=== PATIENT | male | born 1975 | race Caucasian/White ===

== ENCOUNTER 2020-06-08 17:58 | Outpatient (REF) | payer OTHER, SELFPAY | END 2020-06-08 17:59 | disposition home or self-care (01) | LOC: HO.LNP 17:58 | PROVIDERS: Visit Provider Hospitalist | DX: Z20.828 Contact with and (suspected) exposure to other viral communicable diseases (principal) | CPT/HCPCS: 87635 ==

== ENCOUNTER 2020-06-25 14:56 | Outpatient (REF) | payer OTHER, SELFPAY | END 2020-06-25 14:57 | disposition home or self-care (01) | LOC: HO.LAB 14:56 | PROVIDERS: Visit Provider Nurse Practitioner Family | DX: J02.8 Acute pharyngitis due to other specified organisms (principal); B97.89 Other viral agents as the cause of diseases classified elsewhere | CPT/HCPCS: 87071; 87880; U0003 ==

== ENCOUNTER 2020-07-16 11:25 | Outpatient (REF) | payer OTHER, SELFPAY | END 2020-07-16 11:26 | disposition home or self-care (01) | LOC: HO.HMGCLDS 11:25 | PROVIDERS: Visit Provider Internal Medicine | DX: Z20.828 Contact with and (suspected) exposure to other viral communicable diseases (principal) | CPT/HCPCS: C9803; U0003 ==

== ENCOUNTER 2020-11-19 08:19 | Outpatient (REF) | payer OTHER, SELFPAY ==
[2020-11-19 10:03] LABS: MANUAL DIFF FLAG NO
[2020-11-19 10:13] LABS: Basophils Percent Auto 0.4 % (0-2); Eosinophils Absolute Auto 0.2 X10*3/uL (0.0-0.4); Eosinophils Percent Auto 2.5 % (0-4); Hemoglobin 14.4 g/dl (14.0-18.0); Imm Gran Abs Auto 0.02 X10*3/uL (0.00-0.03); Imm Gran Pct Auto 0.2 % (0.0-0.4); Mean Corpuscular Hemoglobin 31.4 pg (27.0-33.0); Mean Corpuscular Volume 98.3 fL (80-98); Mean Platelet Volume 11.1 fL (9.4-12.4); Monocytes Absolute Auto 0.6 X10*3/uL (0.1-1.2); Monocytes Percent Auto 7.4 % (2-11); Neutrophils Absolute Auto 5.6 X10*3/uL (2.0-8.3); Neutrophils Percent Auto 65.5 % (45-73); Platelet Count 252 X10*3/uL (160-400); Red Blood Count 4.58 X10*6/uL (4.60-5.80); Red Cell Distribution Width 11.4 % (11.0-16.0); White Blood Count 8.5 X10*3/uL (4.8-10.8)
[2020-11-19 10:42] LABS: Alanine Aminotransferase 9 U/L (0-40); Albumin Level 3.9 g/dL (3.5-5.0); Alkaline Phosphatase 88 U/L (39-117); Anion Gap 13 (12-20); Aspartate Amino Transferase 12 U/L (5-37); Bilirubin Total 0.5 mg/dL (0.0-1.0); Blood Urea Nitrogen 13 mg/dL (9-16); Calcium 8.7 mg/dL (8.4-10.2); Carbon Dioxide 24 mmol/L (22-29); Chloride 108 mmol/L (96-108); Estimated Glomerular Filt Rate > 60; Glucose Fasting 101 mg/dL (60-99); Potassium 4.2 mmol/L (3.3-5.1); Rheumatoid Factor < 15.0 IU/mL (<15.0); Sodium 141 mmol/L (135-145); Total Protein 6.5 g/dL (6.5-8.0)
[2020-11-20 22:21] LABS: Anti Nuclear Antibody Pattern Nuclear, Centromere; Anti Nuclear Antibody Screen POSITIVE (NEGATIVE)
== END 2020-11-19 08:20 | disposition home or self-care (01) ==
LOC: HO.10HDL 08:19
PROVIDERS: Visit Provider Nurse Practitioner Family
DX: M32.9 Systemic lupus erythematosus, unspecified (principal); M25.50 Pain in unspecified joint
CPT/HCPCS: 36415; 80053; 85025; 86038; 86039; 86431

== ENCOUNTER 2020-12-27 10:24 | Outpatient (REF) | payer OTHER, SELFPAY ==
--- NOTE | ~2020-12-27 | XR_ITS ---
EXAMINATION: BILATERAL HAND X-RAY CLINICAL INFORMATION: Joint pain COMPARISON: None TECHNIQUE: 3 views each hand FINDINGS: Bone alignment is normal. No fracture or dislocation is seen. Joint spaces are normal. Soft tissues are normal. XR/XR hand LT min 3V IMPRESSION: Unremarkable exam.
--- NOTE | ~2020-12-27 | XR_ITS ---
EXAMINATION: BILATERAL HAND X-RAY CLINICAL INFORMATION: Joint pain COMPARISON: None TECHNIQUE: 3 views each hand FINDINGS: Bone alignment is normal. No fracture or dislocation is seen. Joint spaces are normal. Soft tissues are normal. XR/XR hand RT min 3V IMPRESSION: Unremarkable exam.
--- NOTE | ~2020-12-27 | XR_ITS ---
EXAMINATION: XR SHOULDER, RIGHT CLINICAL INFORMATION: Pain COMPARISON: None TECHNIQUE: AP external rotation, Grashey, scapular Y, and axillary views of the right shoulder. FINDINGS: Bone alignment is normal. No fracture or dislocation is seen. The glenohumeral joint is normal. There is a small osteophyte and well-corticated ossification adjacent to the superior acromioclavicular joint. Soft tissues are otherwise unremarkable. XR/XR shoulder RT min 2V IMPRESSION: Mild degenerative changes at the acromioclavicular joint.
[2020-12-27 12:29] LABS: MANUAL DIFF FLAG NO
[2020-12-27 12:35] LABS: Basophils Percent Auto 0.3 % (0-2); Eosinophils Absolute Auto 0.2 X10*3/uL (0.0-0.4); Hematocrit 47.3 % (42-52); Hemoglobin 14.8 g/dl (14.0-18.0); Imm Gran Abs Auto 0.03 X10*3/uL (0.00-0.03); Imm Gran Pct Auto 0.3 % (0.0-0.4); Lymphocytes Absolute Auto 1.7 X10*3/uL (1.2-4.9); Lymphocytes Percent Auto 16.2 % (20-40); Mean Corpuscular HGB Conc 31.3 g/dl (31.0-36.0); Mean Corpuscular Hemoglobin 30.3 pg (27.0-33.0); Mean Corpuscular Volume 96.9 fL (80-98); Mean Platelet Volume 10.9 fL (9.4-12.4); Monocytes Absolute Auto 0.5 X10*3/uL (0.1-1.2); Monocytes Percent Auto 5.1 % (2-11); Neutrophils Percent Auto 76.1 % (45-73); Platelet Count 278 X10*3/uL (160-400); Red Blood Count 4.88 X10*6/uL (4.60-5.80); Red Cell Distribution Width 11.2 % (11.0-16.0); White Blood Count 10.4 X10*3/uL (4.8-10.8)
[2020-12-27 12:47] LABS: Glucose Urine UA NEG (NEG); Leukocyte Esterase Urine NEG (NEG); Nitrite Urine NEG (NEG); PH 5.5 (5.0-8.0); Specific Gravity - Urine >= 1.030 (1.005-1.025); Urine Blood NEG (NEG); Urine Ketones NEG (NEG); Urine Protein NEG (NEG-TRACE)
[2020-12-27 12:48] LABS: Appearance Urine HAZY; Color Urine YELLOW
[2020-12-27 12:53] LABS: Alanine Aminotransferase 10 U/L (0-40); Albumin Level 4.1 g/dL (3.5-5.0); Alkaline Phosphatase 112 U/L (39-117); Anion Gap 13 (12-20); Aspartate Amino Transferase 13 U/L (5-37); Bilirubin Total 0.6 mg/dL (0.0-1.0); Blood Urea Nitrogen 14 mg/dL (9-16); C Reactive Protein 0.73 mg/dL (< or = 0.50); Calcium 9.5 mg/dL (8.4-10.2); Carbon Dioxide 28 mmol/L (22-29); Chloride 104 mmol/L (96-108); Estimated Glomerular Filt Rate > 60; Glucose Random 153 mg/dL (60-115); Potassium 4.3 mmol/L (3.3-5.1); Rheumatoid Factor < 15.0 IU/mL (<15.0); Sodium 141 mmol/L (135-145)
[2020-12-27 13:19] LABS: RBC Urine 0 /HPF (0); Squamous Epithelial Cell Urine TRACE /LPF; WBC Urine 0 /HPF (0-4)
[2020-12-27 13:52] LABS: Erythrocyte Sedimentation Rate 7 MM/HR (0-15)
[2020-12-28 03:55] LABS: Syphilis Screen Nonreactive (Nonreactive)
[2020-12-28 04:28] LABS: HBS Num1 92.82 mIU/mL (0-7.99); HBsAGNum1 0.17 S/CO (0.00-0.99); Hepatitis B Surface Antigen Negative (Negative); ~Hepatitis B Surface Antibody REACTIVE (Nonreactive)
[2020-12-28 04:36] LABS: Hepatitis A Antibody IgM 0.26 Index (0-0.79); ~HepC Num1 14.99 S/CO (0.00-0.79); ~Hepatitis A Antibody IgM Nonreactive (Nonreactive); ~Hepatitis C Antibody Reactive (Nonreactive)
[2020-12-28 05:11] LABS: HBc Num1 7.68 S/CO (0.00-0.79)
[2020-12-28 05:12] LABS: HBc Num2 7.68 S/CO; HBc Num3 7.81 S/CO; Hepatitis B Core Antibody Reactive (Nonreactive)
[2020-12-28 08:13] LABS: Thyroglobulin Antibodies <1 IU/mL (< or = 1); Thyroid Peroxidase Antibodies <1 IU/mL (<9)
[2020-12-28 11:26] LABS: Complement C3 135 mg/dL (82-185)
[2020-12-28 12:16] LABS: Anti DNA DS Antibody <1 IU/mL; Anti-Centromere B Antibodies >8.0 POS AI (<1.0 NEG); Antibody to SS-A Antigen <1.0 NEG AI (<1.0 NEG); Antibody to SS-B Antigen <1.0 NEG AI (<1.0 NEG); SM/Ribonucleoprotein Ab <1.0 NEG AI (<1.0 NEG); Scleroderma 70 Antibody <1.0 NEG AI (<1.0 NEG); Smith Protein <1.0 NEG AI (<1.0 NEG)
[2020-12-31 14:57] LABS: PTT (LAC) Screen 31 sec (< OR = 40)
[2020-12-31 22:56] LABS: Cyclic Citrullinated Peptide <16 UNITS
[2021-01-01 14:57] LABS: Beta-2 Microglobulin, Serum 1.75 mg/L (< OR = 2.51)
[2021-01-01 22:37] LABS: Cardiolipin IgG Ab <14 GPL; Cardiolipin IgM Ab <12 MPL
== END 2020-12-27 10:25 | disposition home or self-care (01) ==
LOC: HO.LAB 10:24
PROVIDERS: PCP Internal Medicine; Visit Provider Student in an Organized Health Care Education/Training Program
DX: M25.50 Pain in unspecified joint (principal); R76.8 Other specified abnormal immunological findings in serum
CPT/HCPCS: 36415; 73030; 73130; 80053; 81001; 82232; 85025; 85597; 85613; 85652; 85730; 86038; 86140; 86147; 86160; 86200; 86225; 86235; 86376; 86431; 86704; 86706; 86709; 86780; 86800; 86803; 87340; 99202

== ENCOUNTER 2021-01-01 17:17 | Outpatient (REF) | payer OTHER, SELFPAY ==
[2021-01-03 15:21] LABS: HCV Log PCR <1.18 NOT DETECTED Log IU/mL (NOT DETECTED); HepC Viral Load <15 NOT DETECTED IU/mL (NOT DETECTED)
== END 2021-01-01 17:18 | disposition home or self-care (01) ==
LOC: HO.LAB 17:17
PROVIDERS: PCP Internal Medicine; Visit Provider Student in an Organized Health Care Education/Training Program
DX: R76.8 Other specified abnormal immunological findings in serum (principal)
CPT/HCPCS: 36415; 87522

== ENCOUNTER → 2021-01-11 10:07 | Outpatient (BNVA) | payer OTHER, SELFPAY | PROVIDERS: Visit Provider Student in an Organized Health Care Education/Training Program | DX: R76.8 Other specified abnormal immunological findings in serum (principal) | CPT/HCPCS: 99212 ==

== ENCOUNTER 2021-02-05 16:50 | Outpatient (REF) | payer OTHER, SELFPAY ==
--- NOTE | ~2021-02-05 | MR_ITS ---
EXAMINATION: MR HAND WITHOUT CONTRAST, RIGHT CLINICAL INFORMATION: Other specified soft tissue disorders. Patient reports right hand swelling and right wrist pain with symptoms for 3 years, and no recent injury. COMPARISON: XR right hand 12/27/2020. TECHNIQUE: MRI of the right hand was obtained using routine sequences on a high-field scanner. FINDINGS: MUSCLES/TENDONS: Intact. LIGAMENTS: Accounting for the large [id number], the triangular fibrocartilage and scapholunate and lunotriquetral ligaments appear intact. ARTICULAR CARTILAGE/BONE: There are no erosions. There are no other apparent degenerative arthritic changes. There are is no bone marrow edema. JOINT FLUID/BURSA/SOFT TISSUES: Within normal limits. MR/MR hand RT wo con IMPRESSION: Unremarkable MRI of the right hand.
== END 2021-02-05 16:51 | disposition home or self-care (01) ==
LOC: HO.MRI 16:50
PROVIDERS: Visit Provider Student in an Organized Health Care Education/Training Program
DX: M79.89 Other specified soft tissue disorders (principal)
CPT/HCPCS: 73218

== ENCOUNTER 2021-02-19 13:35 | Outpatient (REF) | payer OTHER, SELFPAY ==
--- NOTE | 2021-02-19 14:47 | PFT_ITS ---
Forced vital capacity, FEV1, XUI16-85, and MVV are all normal. Post bronchodilator therapy, there is no change. Total lung capacity normal. Residual volume slightly decreased. Diffusion capacity normal. CONCLUSION: Normal pulmonary function test. No evidence of obstructive or restrictive pulmonary disorder. Gayatri Jefferson MD MSB/MODL / [id number]
== END 2021-02-19 13:36 | disposition home or self-care (01) ==
LOC: HO.RESP 13:35
PROVIDERS: PCP Internal Medicine; Visit Provider Student in an Organized Health Care Education/Training Program
DX: R76.8 Other specified abnormal immunological findings in serum (principal)
CPT/HCPCS: 94060; 94727; 94729

== ENCOUNTER 2021-05-14 17:45 | Outpatient (REF) | payer OTHER, SELFPAY ==
[2021-05-14 18:23] LABS: Amphetamine Screen Urine Not Detected (Not Detect); Barbiturates, Urine Not Detected (Not Detect); Benzodiazepines Screen Urine Not Detected (Not Detect); Cannabinoid Screen Urine Not Detected (Not Detect); Cocaine Screen Urine POSITIVE (Not Detect); Fentanyl, urine POSITIVE (Not Detect); Opiate Screen Urine Not Detected (Not Detect); Phencyclidine Screen Urine Not Detected (Not Detect)
== END 2021-05-14 17:46 | disposition home or self-care (01) ==
LOC: HO.LNP 17:45
PROVIDERS: Visit Provider Internal Medicine
DX: R40.0 Somnolence (principal)
CPT/HCPCS: 80307; 80346; 80364; 80365; 80373

== ENCOUNTER 2022-02-26 14:23 | Outpatient (REF) | payer OTHER, SELFPAY ==
[2022-02-26 14:53] LABS: MANUAL DIFF FLAG NO
[2022-02-26 14:56] LABS: Basophils Percent Auto 0.2 % (0-2); Eosinophils Absolute Auto 0.1 X10*3/uL (0.0-0.4); Eosinophils Percent Auto 1.1 % (0-4); Hematocrit 43.1 % (42.0-52.0); Hemoglobin 14.1 g/dl (14.0-18.0); Imm Gran Abs Auto 0.04 X10*3/uL (0.00-0.03); Imm Gran Pct Auto 0.4 % (0.0-0.4); Lymphocytes Absolute Auto 1.4 X10*3/uL (1.2-4.9); Lymphocytes Percent Auto 14.6 % (20-40); Mean Corpuscular HGB Conc 32.7 g/dl (31.0-36.0); Mean Corpuscular Hemoglobin 31.3 pg (27.0-33.0); Mean Corpuscular Volume 95.6 fL (80.0-98.0); Mean Platelet Volume 10.6 fL (9.4-12.4); Monocytes Absolute Auto 0.6 X10*3/uL (0.1-1.2); Monocytes Percent Auto 6.7 % (2-11); Neutrophils Absolute Auto 7.2 x10*3/uL (2.0-8.3); Platelet Count 240 X10*3/uL (160-400); Red Blood Count 4.51 X10*6/uL (4.60-5.80); Red Cell Distribution Width 11.2 % (11.0-16.0); White Blood Count 9.3 X10*3/uL (4.8-10.8)
[2022-02-26 15:25] LABS: Alanine Aminotransferase 8 U/L (0-40); Albumin Level 4.1 g/dL (3.5-5.0); Alkaline Phosphatase 89 U/L (39-117); Anion Gap 10 (12-20); Aspartate Amino Transferase 12 U/L (5-37); Bilirubin Total 0.4 mg/dL (0.0-1.0); Blood Urea Nitrogen 14 mg/dL (9-16); Calcium 9.2 mg/dL (8.4-10.2); Carbon Dioxide 26 mmol/L (22-29); Chloride 109 mmol/L (96-108); Cholesterol 174 mg/dL; Estimated Glomerular Filt Rate > 60; Glucose Fasting 127 mg/dL (60-99); HDL Cholesterol 45 mg/dL; LDL Cholesterol Calculated 118 mg/dl; Potassium 4.2 mmol/L (3.3-5.1); Sodium 141 mmol/L (135-145); Triglycerides 56 mg/dL
[2022-02-26 15:42] LABS: Syphilis Screen Nonreactive (Nonreactive)
[2022-02-26 17:50] LABS: TSH reflex Free T4 0.61 uIU/mL (0.32-4.0)
[2022-02-27 04:52] LABS: HIV Num 1 2.81 S/CO (0.00-0.99)
[2022-02-27 05:41] LABS: CT PCR NOT DETECTED (Not Detect.); NG PCR NOT DETECTED (Not Detect.)
[2022-02-27 06:03] LABS: HIV Num 2 0.06 S/CO; HIV Num 3 0.09 S/CO
[2022-02-27 06:04] LABS: HIV AB/AG Nonreactive (Nonreactive)
== END 2022-02-26 14:24 | disposition home or self-care (01) ==
LOC: HO.LAB 14:23
PROVIDERS: Absent Provider Internal Medicine; PCP Internal Medicine; Visit Provider Nurse Practitioner Family
DX: I10 Essential (primary) hypertension (principal); E78.00 Pure hypercholesterolemia, unspecified; F41.8 Other specified anxiety disorders; Z11.3 Encounter for screening for infections with a predominantly sexual mode of transmission; Z11.4 Encounter for screening for human immunodeficiency virus [HIV]; Z11.8 Encounter for screening for other infectious and parasitic diseases; Z13.220 Encounter for screening for lipoid disorders; Z13.29 Encounter for screening for other suspected endocrine disorder
CPT/HCPCS: 36415; 80053; 80061; 84443; 85025; 86780; 87389; 87491; 87591

== ENCOUNTER → 2022-03-03 14:54 | Outpatient (BNVA) | payer OTHER, SELFPAY | PROVIDERS: PCP Internal Medicine; Visit Provider Internal Medicine Rheumatology | DX: R76.8 Other specified abnormal immunological findings in serum (principal); R20.0 Anesthesia of skin | CPT/HCPCS: 99212 ==

== ENCOUNTER 2022-03-17 13:39 | Outpatient (REF) | payer OTHER, SELFPAY ==
[2022-03-17 14:01] LABS: MANUAL DIFF FLAG NO
[2022-03-17 14:26] LABS: Basophils Percent Auto 0.3 % (0-2); Eosinophils Absolute Auto 0.1 X10*3/uL (0.0-0.4); Eosinophils Percent Auto 1.8 % (0-4); Hematocrit 43.2 % (42.0-52.0); Hemoglobin 14.1 g/dl (14.0-18.0); Imm Gran Abs Auto 0.02 X10*3/uL (0.00-0.03); Imm Gran Pct Auto 0.3 % (0.0-0.4); Lymphocytes Absolute Auto 1.9 X10*3/uL (1.2-4.9); Lymphocytes Percent Auto 25.1 % (20-40); Mean Corpuscular HGB Conc 32.6 g/dl (31.0-36.0); Mean Corpuscular Volume 94.9 fL (80.0-98.0); Mean Platelet Volume 11.1 fL (9.4-12.4); Monocytes Absolute Auto 0.6 X10*3/uL (0.1-1.2); Monocytes Percent Auto 7.5 % (2-11); Neutrophils Absolute Auto 4.8 x10*3/uL (2.0-8.3); Platelet Count 233 X10*3/uL (160-400); Red Blood Count 4.55 X10*6/uL (4.60-5.80); Red Cell Distribution Width 11.4 % (11.0-16.0); White Blood Count 7.4 X10*3/uL (4.8-10.8)
[2022-03-17 14:44] LABS: C Reactive Protein 0.11 mg/dL (< or = 0.50); Estimated Glomerular Filt Rate > 60
[2022-03-17 14:48] LABS: Creatinine Urine 298.25 mg/dL; Protein/Creatinine Ratio, Ur 0.05 (<0.2); Total Protein Urine Random 16 mg/dL (<12)
[2022-03-17 14:51] LABS: Estimated Average Glucose 94 mg/dL; Hemoglobin A1c % 4.9 %
[2022-03-17 15:17] LABS: Erythrocyte Sedimentation Rate 7 MM/HR (0-15)
[2022-03-18 17:32] LABS: Anti DNA DS Antibody <1 IU/mL; SM/Ribonucleoprotein Ab <1.0 NEG AI (<1.0 NEG); Smith Protein <1.0 NEG AI (<1.0 NEG)
== END 2022-03-17 13:40 | disposition home or self-care (01) ==
LOC: HO.LAB 13:39
PROVIDERS: Nurse Practitioner Family; PCP Internal Medicine; Visit Provider Internal Medicine Rheumatology
DX: E11.9 Type 2 diabetes mellitus without complications (principal); R76.8 Other specified abnormal immunological findings in serum; Z79.899 Other long term (current) drug therapy
CPT/HCPCS: 36415; 82565; 83036; 84156; 85025; 85652; 86140; 86225; 86235

== ENCOUNTER 2022-08-07 09:02 | Outpatient (REF) | payer OTHER, SELFPAY ==
--- NOTE | 2022-08-07 | EMG_ITS ---
Right median and ulnar motor and sensory studies were performed. Right radial sensory study was performed and paraspinal muscles were tested with a needle. IMPRESSION: Mild right ulnar neuropathy across cubital tunnel. MD JAZMIN Ashby/SHELLEY / [id number]
== END 2022-08-07 09:03 | disposition home or self-care (01) ==
LOC: HO.NEURO 09:02
PROVIDERS: PCP Internal Medicine; Visit Provider Internal Medicine Rheumatology
DX: R20.0 Anesthesia of skin (principal); R20.2 Paresthesia of skin
CPT/HCPCS: 95886; 95909

== ENCOUNTER 2023-07-03 14:40 | Outpatient (AMB) | payer OTHER, SELFPAY ==
--- NOTE | 2023-07-03 14:50 | MHC.PC.OV ---
Vital Signs 07/03/23 14:52 07/03/23 15:02 Height 5 ft 6 in Weight 192 lb 2 oz BMI 31.0 BP 140/100 H 130/90 H Blood Pressure Location Lt brachial Lt brachial Position Sitting Sitting Pulse 84 Pulse Source Pulse Oximeter Pulse Oximetry (%) 97 Oxygen Delivery Method Room Air Intake Visit Reasons: Annual Physical Intake Note: Patient is here today for a physical. Complaint of sleeping always, history of lupus, kidney issues. 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 Accompanied by: Spouse Allergies ibuprofen [From MOTRIN] Allergy (Intermediate, Verified 07/03/23 15:07) RASH/ITCH, swelling Medication List - Last Reconciled 07/03/23 by JOCELIN Elkins No Known Home Meds Tobacco use date assessed: 07/03/23 Dental Screening Dental Screen Date: 07/03/23 Did you have a dental visit in the last 12 months?: Yes Did you have a dental problem in the last 6 months where you did not have access to dental care?: No Was dental information given to patient?: Patient has dentist HPI Annual Physical HPI Details Patient is a 47-year-old male who presents today for physical exam. Patient of Dr. Gomez. Medical history significant for depression with anxiety-patient reports that he feels stable-declines treatment or referral to counseling, insomnia, history of heroin use-clean since 2019 per patient and his , positive NACHO-was seen by [facility] in the past - he will call for another appointment for a follow-up, impaired fasting glucose. Today we discussed patient's need for colon cancer screening. Today, reports that patient has been snoring and stops breathing at night for the past 3 years. And every time he sits down or lay down he falls asleep right away and can sleep straight for 5 days for over 1 year now. 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 Patient reports feeling tired all the time and also reports intermittent swelling in his hands and legs. No shortness of breath or chest pain. Patient is a Yakut-speaking and Jessica MACKEY was helping with interpretation. [facility] Medical History Screen for STD (sexually transmitted disease) Drowsy Positive NACHO (antinuclear antibody) History of lupus anticoagulant disorder Lupus arthritis Polyarthralgia History of heroin use Insomnia Depression with anxiety Surgical History No pertinent past surgical history Family History Father Diabetes Hypertension Chronic mental illness Mother No problems noted. Family/Other Chronic mental illness Substance use disorder Social History Housing: Apartment Alcohol intake: never Patient Tobacco Use Status: Current everyday Tobacco user Tobacco use type: Cigarette Cigarette Packs Per Day: 1.5 Cigarettes Per Day: 30 e-Cigarette/Vaping Use: Never Used Second Hand Smoke Exposure: No service: No Current occupational status: unemployed Cognitive needs: No Hearing needs: No Vision needs: No Questionnaire PHQ-9 Over the last 2 weeks, how often have you been bothered by any of the following problems? 1. Little interest or pleasure in doing things: nearly every day 2. Feeling down, depressed, or hopeless: several days 3. Trouble falling or staying asleep, or sleeping too much: nearly every day 4. Feeling tired or having little energy: nearly every day 5. Poor appetite or overeating: several days 6. Feeling bad about yourself - or that you are a failure or have let yourself or your family down: several days 7. Trouble concentrating on things, such as reading the newspaper or watching television: nearly every day 8. Moving or speaking so slowly that other people could have noticed. Or the opposite - being so fidgety or restless that you have been moving around a lot more than usual: nearly every day 9. Thoughts that you would be better off or of hurting yourself in some way: not at all Total score: 18 Depression Screening Interpretation: Positive Depression Screening Follow-up: Declines treatment Depression Screening Done: Yes [id number] - PHQ-9 Billing: Yes Source: Developed by Drs. Forrest Villareal, Renee Merino, Jeremias Meneses and colleagues, with an educational rachel from [employer]. Thrive Questionnaire Date Thrive assessed: 07/03/23 I am a: Patient What is your living situation today?: I have a steady place to live Within the past 12 months, did the food you bought not last and you didn't have the money to get more?: Never true Within the past 12 months, did you worry whether your food would run out before you got money to buy more?: Never true Do you have trouble paying for medicines?: No Do you have trouble getting transportation to medical appointments?: No Do you have trouble paying your heating and electricity bill?: No Do you have trouble taking care of your child, family member or friend?: No Do you have trouble with day-to-day activities such as bathing, preparing meals, shopping, managing finances, etc.?: No Are you currently unemployed and looking for a job?: No Are you interested in more education?: No Currently or been in a relationship where the following occur: no concerns reported AUDIT C Alcohol Use Questionnaire (AUDIT-C) 1. How often do you have a drink containing alcohol?: Never Total Score: 0 Score Reviewed/Action Taken: No TUAN-7 AMB Questionnaire TUAN-7 Date TUAN - 7 assessed: 07/03/23 Feeling nervous, anxious, or on edge: 3 = Nearly every day Not being able to stop or control worryin = Nearly every day Worrying too much about different things: 3 = Nearly every day Trouble relaxin = Nearly every day Being so restless that it is hard to sit still: 3 = Nearly every day Becoming easily annoyed or irritable: 3 = Nearly every day Feeling afraid as if something awful might happen: 3 = Nearly every day Total TUAN-7 score (0-4 normal; 5-9 mild; 10-14 moderate; 15-21 severe): 21 Source: Developed by Drs. Forrest Villareal, Renee Merino, Jeremias Meneses and colleagues, with an educational rachel from [employer]. TUAN-7 Assessment Billing TUAN-7 Assessment Tool: TUAN-7 Assessment 40224 Review of Systems Const Denies body aches, Denies chills, Reports daytime sleepiness, Reports fatigue, Denies fever(s), Denies headache(s) and Reports stops breathing during sleep Eyes Denies change in vision ENT Denies dizziness, Denies otalgia, Denies headache(s), Denies nasal discharge, Denies sinus pain and Denies sore throat Card Reports as per HPI, Denies chest pain, Denies edema, Denies lightheadedness and Denies dyspnea Resp Denies cough, Denies dyspnea and Denies wheezing GI Denies abdominal pain, Denies constipation, Denies diarrhea, Denies nausea and Denies vomiting Denies dysuria Musc Denies myalgias Skin/Breast Denies rash Neuro Denies dizziness and Denies headache(s) Endo Reports fatigue Aller/Immun Denies wheezing Physical exam (Primary Care) Vital Signs: Last Vital Signs Pulse 84 07/03/23 14:52 BP 130/90 H 07/03/23 15:02 Pulse Ox 97 07/03/23 14:52 Oxygen Delivery Method Room Air 07/03/23 14:52 BMI result Body Mass Index 31.0 Tobacco/Smoking Status: Tobacco use Status Tobacco use date assessed 07/03/23 07/03/23 15:03 Patient Tobacco Use Status Current everyday Tobacco 07/03/23 15:03 Tobacco use type Cigarette 07/03/23 15:03 e-Cigarette/Vaping Use Never Used 07/03/23 15:03 PHQ-9: PHQ-9 Score PHQ-9: Total score 18 07/03/23 15:23 Depression Screening Interpretation: Positive Depression Screening Follow-up: Declines treatment Thrive Assessment: Date of Thrive Assessment Date Thrive assessed 07/03/23 07/03/23 15:03 Currently or been in a relationship where the following occur: no concerns reported Const Other: Patient appears drowsy-he denies any drug use General: cooperative and no acute distress Orientation/consciousness: patient oriented x3 HENMT Head: Yes normocephalic and Yes atraumatic Ears: TM's normal bilaterally Face and sinus: Yes sinuses nontender Mouth: oropharynx normal and moist mucous membranes Throat: Yes posterior oropharynx normal Eyes General: appearance normal, both eyes and all related structures Pupils: Equal, round and reactive pupils present EOM: EOMs intact bilaterally Neck Neck: Yes normal visual inspection, Yes full ROM and Yes no lymphadenopathy Thyroid: Thyroid normal Resp Effort & Inspection: normal respiratory effort and able to speak in complete sentences Auscultation: clear to auscultation bilaterally, no crackles, no rales, no rhonchi and no wheezes Cardio Rate: regular rate Rhythm: regular rhythm Heart sounds: S1 normal heart sound present, S2 normal heart sound present and no murmurs GI Palpation (GI): Soft to palpation, not firm, nontender, no guarding, not rigid and no hepatosplenomegaly Auscultation: normal bowel sounds General: No CVA tenderness Back/Spine/Pelvis Back: No CVA tenderness Skin General skin exam: no rashes or lesions noted Neuro General: patient oriented x3 Cranial nerves: Yes Equal, round and reactive pupils present Gait exam (Neuro): Normal gait present Extrem General: Yes full ROM and No edema Assessment and Plan Assessment & Plan (1) Hypersomnia: Code(s): G47.10 - Hypersomnia, unspecified Plan: Will obtain blood work Urine drug test Home sleep study Sleep medicine referral Patient agreed with the plan (2) Screening for colon cancer: Code(s): Z12.11 - Encounter for screening for malignant neoplasm of colon (3) Adult general medical exam: Code(s): Z. - Encounter for general adult medical examination without abnormal findings Plan: Repeat in 1 year (4) Impaired fasting glucose: Code(s): R73.01 - Impaired fasting glucose Plan: A1c ordered (5) Positive NACHO (antinuclear antibody): Comment: 10/2020: 1:640, centromere pattern Code(s): R76.8 - Other specified abnormal immunological findings in serum Plan: Patient will call rheumatology for a follow-up appointment (6) History of heroin use: Code(s): Z87.898 - Personal history of other specified conditions Plan: Patient reports being clean since 2019 (7) Depression with anxiety: Code(s): F41.8 - Other specified anxiety disorders Plan: Patient reports that his mental health is stable and he does not need treatment Plan Follow-up with PCP in 3 months or sooner as needed Orders: Orders TSH reflex Free T4 07/03/23 Z. - Encounter for general adult medical examination without abnormal findings Comprehensive [place]. Panel Fast 07/03/23 Z00.00 - Encounter for general adult medical examination without abnormal findings Complete Blood Count Auto Diff 07/03/23 Z00. - Encounter for general adult medical examination without abnormal findings Hemoglobin A1c 07/03/23 R73.01 - Impaired fasting glucose Lipid Panel 07/03/23 Z. - Encounter for general adult medical examination without abnormal findings Drug Screen Urine 07/03/23 G47.10 - Hypersomnia, unspecified RT home sleep study 07/03/23 G47.10 - Hypersomnia, unspecified Referrals Gastroenterology Referral Z12.11 - Encounter for screening for malignant neoplasm of colon Sleep Medicine Referral G47.10 - Hypersomnia, unspecified Coding Level of Care Code Est Pt Prev Care 40-64y(06042) Diagnoses Hypersomnia G47.10 Screening for colon cancer Z12.11 Adult general medical exam Z00.00 Impaired fasting glucose R73.01 Positive NACHO (antinuclear antibody) R76.8 History of heroin use Z87.898 Depression with anxiety F41.8 Additional Codes TUAN-7 Assessment Billing - TUAN-7 Assessment Tool: TUAN-7 Assessment [id number] ([id number])
[2023-07-03 14:52] VITALS: BP 140/100; PULSE 84; O2SAT 97; BMI 31.0
[2023-07-03 15:02] VITALS: BP 130/90
== END 2023-07-03 15:25 | disposition home or self-care (01) ==
PROVIDERS: PCP Internal Medicine; Visit Provider Nurse Practitioner Family
DX: Z00.00 Encounter for general adult medical examination without abnormal findings (principal); G47.10 Hypersomnia, unspecified; Z12.11 Encounter for screening for malignant neoplasm of colon; R73.01 Impaired fasting glucose; R76.8 Other specified abnormal immunological findings in serum; Z87.898 Personal history of other specified conditions; F41.8 Other specified anxiety disorders
CPT/HCPCS: 99396

== ENCOUNTER 2023-08-04 15:06 | Outpatient (REF) | payer OTHER, SELFPAY ==
[2023-08-04 17:20] LABS: Amphetamine Screen Urine Not Detected (Not Detect); Barbiturates, Urine Not Detected (Not Detect); Benzodiazepines Screen Urine Not Detected (Not Detect); Cannabinoid Screen Urine Not Detected (Not Detect); Cocaine Screen Urine Not Detected (Not Detect); Fentanyl, urine Not Detected (Not Detect); Opiate Screen Urine Not Detected (Not Detect); Phencyclidine Screen Urine Not Detected (Not Detect)
== END 2023-08-04 15:07 | disposition home or self-care (01) ==
LOC: HO.LAB 15:06
PROVIDERS: Visit Provider Nurse Practitioner Family
DX: Z00.00 Encounter for general adult medical examination without abnormal findings (principal); G47.10 Hypersomnia, unspecified; R73.01 Impaired fasting glucose
CPT/HCPCS: 80307

== ENCOUNTER 2023-10-15 12:38 | Outpatient (REF) | payer SELFPAY ==
[2023-10-15 13:01] LABS: MANUAL DIFF FLAG NO
[2023-10-15 13:26] LABS: Basophils Percent Auto 0.5 % (0-2); Eosinophils Absolute Auto 0.2 X10*3/uL (0.0-0.4); Eosinophils Percent Auto 2.5 % (0-4); Hematocrit 46.3 % (42.0-52.0); Hemoglobin 15.4 g/dl (14.0-18.0); Imm Gran Abs Auto 0.02 X10*3/uL (0.00-0.03); Imm Gran Pct Auto 0.2 % (0.0-0.4); Lymphocytes Absolute Auto 2.5 X10*3/uL (1.2-4.9); Lymphocytes Percent Auto 28.5 % (20-40); Mean Corpuscular HGB Conc 33.3 g/dl (31.0-36.0); Mean Corpuscular Hemoglobin 31.4 pg (27.0-33.0); Mean Corpuscular Volume 94.5 fL (80.0-98.0); Mean Platelet Volume 10.6 fL (9.4-12.4); Monocytes Absolute Auto 0.6 X10*3/uL (0.1-1.2); Monocytes Percent Auto 7.3 % (2-11); Neutrophils Absolute Auto 5.3 x10*3/uL (2.0-8.3); Platelet Count 295 X10*3/uL (160-400); Red Cell Distribution Width 11.3 % (11.0-16.0); White Blood Count 8.7 X10*3/uL (4.8-10.8)
[2023-10-15 13:31] LABS: Estimated Average Glucose 94 mg/dL; Hemoglobin A1c % 4.9 % (<6.0)
[2023-10-15 14:01] LABS: Alanine Aminotransferase 10 U/L (0-40); Albumin Level 4.3 g/dL (3.5-5.0); Alkaline Phosphatase 99 U/L (39-117); Anion Gap 12 (12-20); Aspartate Amino Transferase 14 U/L (5-37); Bilirubin Total 0.6 mg/dL (0.0-1.0); Blood Urea Nitrogen 12 mg/dL (9-16); Calcium 9.4 mg/dL (8.4-10.2); Carbon Dioxide 28 mmol/L (22-29); Chloride 105 mmol/L (96-108); Cholesterol 158 mg/dL (<200); Estimated Glomerular Filt Rate > 60; Glucose Fasting 118 mg/dL (60-99); HDL Cholesterol 39 mg/dL (>40); LDL Cholesterol Calculated 106 mg/dL (<100); Potassium 3.7 mmol/L (3.3-5.1); Sodium 141 mmol/L (135-145); Total Protein 7.6 g/dL (6.5-8.0); Triglycerides 65 mg/dL (<150)
[2023-10-15 14:17] LABS: TSH reflex Free T4 0.79 uIU/mL (0.32-4.0)
== END 2023-10-15 12:39 | disposition home or self-care (01) ==
LOC: HO.LAB 12:38
PROVIDERS: PCP Internal Medicine; Visit Provider Nurse Practitioner Family
DX: Z00.00 Encounter for general adult medical examination without abnormal findings (principal); R73.01 Impaired fasting glucose
CPT/HCPCS: 36415; 80053; 80061; 83036; 84443; 85025

== ENCOUNTER 2024-04-26 10:12 | Outpatient (AMB) | payer OTHER, SELFPAY ==
--- NOTE | 2024-04-26 10:21 | MHC.PC.OV ---
Vital Signs 04/26/24 10:22 Height 5 ft 6 in Weight 189 lb BMI 30.5 BP 136/80 Blood Pressure Location Lt brachial Position Sitting Pulse 101 H Pulse Source Pulse Oximeter Pulse Oximetry (%) 95 Oxygen Delivery Method Room Air Intake Visit Reasons: Lupus f/u Intake Note: Patient is here to follow up on Lupus. Manufacturers Representative Required: Yes Manufacturers Representative Language: Family Literacy Coordinator Name: Autumn ([id number]) Information Interpreted: non-clinical & clinical Lpn Rn: Present Accompanied by: Spouse Allergies ibuprofen [From MOTRIN] Allergy (Intermediate, Verified 04/26/24 13:26) RASH/ITCH, swelling Medication List - Last Reconciled 04/26/24 by Prabhakar Elliott MD No Known Home Meds Tobacco use date assessed: 04/26/24 Dental Screening Dental Screen Date: 04/26/24 Did you have a dental visit in the last 12 months?: Yes Did you have a dental problem in the last 6 months where you did not have access to dental care?: No Was dental information given to patient?: Patient has dentist HPI Lupus f/u HPI Details 48-year-old male presents to the office to discuss his medical condition. He is accompanied by his spouse. Both do not speak Qatari, an translator and interpreter using the iPad was utilized. Patient is coming to the office after a gap of more 8 months. He does not know who his primary care provider was. He believes he was diagnosed with lupus and sleep apnea. But he lost his insurance, had a brief period of incarceration and therefore could not follow-up with his medical conditions. Now he would like to get the appropriate treatment. He is reporting swelling in his hands and feet. Not able to work because of hypersomnia. Unable to sleep at night. Smokes 2 packs a day. Denies consumption of marijuana, alcohol or illicit drugs. Reports morning stiffness. [facility] Medical History Screen for STD (sexually transmitted disease) Drowsy Positive NACHO (antinuclear antibody) History of lupus anticoagulant disorder Lupus arthritis Polyarthralgia History of heroin use Insomnia Depression with anxiety Surgical History No pertinent past surgical history Family History Father Diabetes Hypertension Chronic mental illness Mother No problems noted. Family/Other Chronic mental illness Substance use disorder Social History (Updated 04/26/24 @ 10:28 by RHEA Whitman) Housing: Apartment Alcohol intake: never Patient Tobacco Use Status: Current everyday Tobacco user Tobacco use type: Cigarette Cigarette Packs Per Day: 2 Cigarettes Per Day: 40 e-Cigarette/Vaping Use: Never Used Second Hand Smoke Exposure: Yes service: No Current occupational status: unemployed Cognitive needs: No Hearing needs: No Vision needs: No Questionnaire PHQ-9 Over the last 2 weeks, how often have you been bothered by any of the following problems? 1. Little interest or pleasure in doing things: more than half the days 2. Feeling down, depressed, or hopeless: nearly every day 3. Trouble falling or staying asleep, or sleeping too much: nearly every day 4. Feeling tired or having little energy: several days 5. Poor appetite or overeating: not at all 6. Feeling bad about yourself - or that you are a failure or have let yourself or your family down: not at all 7. Trouble concentrating on things, such as reading the newspaper or watching television: several days 8. Moving or speaking so slowly that other people could have noticed. Or the opposite - being so fidgety or restless that you have been moving around a lot more than usual: more than half the days 9. Thoughts that you would be better off or of hurting yourself in some way: not at all Total score: 12 Depression Screening Interpretation: Positive Depression Screening Done: Yes Source: Developed by Drs. Forrest Villareal, Renee Merino, Jeremias Meneses and colleagues, with an educational rachel from [employer]. Thrive Questionnaire Date Thrive assessed: 04/26/24 I am a: Patient What is your living situation today?: I have a steady place to live Within the past 12 months, did the food you bought not last and you didn't have the money to get more?: Never true Within the past 12 months, did you worry whether your food would run out before you got money to buy more?: Never true Do you have trouble paying for medicines?: No Do you have trouble getting transportation to medical appointments?: No Do you have trouble paying your heating and electricity bill?: No Do you have trouble taking care of your child, family member or friend?: No Do you have trouble with day-to-day activities such as bathing, preparing meals, shopping, managing finances, etc.?: No Are you currently unemployed and looking for a job?: No Are you interested in more education?: No Currently or been in a relationship where the following occur: No concerns reported THRIVE Score: 0 AUDIT C Alcohol Use Questionnaire (AUDIT-C) 1. How often do you have a drink containing alcohol?: Never Total Score: 0 TUAN-7 AMB Questionnaire TUAN-7 Date TUAN - 7 assessed: 04/26/24 Feeling nervous, anxious, or on edge: 3 = Nearly every day Not being able to stop or control worryin = Nearly every day Worrying too much about different things: 3 = Nearly every day Trouble relaxin = More than half the days Being so restless that it is hard to sit still: 2 = More than half the days Becoming easily annoyed or irritable: 3 = Nearly every day Feeling afraid as if something awful might happen: 2 = More than half the days Total TUAN-7 score (0-4 normal; 5-9 mild; 10-14 moderate; 15-21 severe): 18 Source: Developed by Drs. Forrest Villareal, Renee Merino, Jeremias Meneses and colleagues, with an educational rachel from [employer]. Physical exam (Primary Care) Vital Signs: Last Vital Signs Pulse 101 H 04/26/24 10:22 BP 136/80 04/26/24 10:22 Pulse Ox 95 04/26/24 10:22 Oxygen Delivery Method Room Air 04/26/24 10:22 BMI result Body Mass Index 30.5 Tobacco/Smoking Status: Tobacco use Status Tobacco use date assessed 04/26/24 04/26/24 10:25 Patient Tobacco Use Status Current everyday Tobacco 04/26/24 10:28 Tobacco use type Cigarette 04/26/24 10:28 e-Cigarette/Vaping Use Never Used 04/26/24 10:28 PHQ-9: PHQ-9 Score PHQ-9: Total score 12 04/26/24 10:34 Depression Screening Interpretation: Positive Thrive Assessment: Date of Thrive Assessment Date Thrive assessed 04/26/24 04/26/24 10:25 Currently or been in a relationship where the following occur: No concerns reported Const General: cooperative and healthy appearing Nutritional Appearance: well nourished Orientation/consciousness: patient oriented x3 Limitations: no limitations HENMT Head: Yes normal to inspection Eyes General: appearance normal, both eyes and all related structures Neck Neck: Yes normal visual inspection Chest Chest palpation & inspection: normal palpation of entire chest wall Resp Effort & Inspection: normal respiratory effort Neuro General: patient oriented x3 Assessment and Plan Assessment & Plan (1) Edema of both feet: Code(s): R60.0 - Localized edema Plan: Previous history reviewed in the chart. Patient has had seen a pastry chef once for positive NACHO. No diagnosis of lupus was made. He had given history of hypersomnia in the past. There is history of heroin addiction, patient reports today that he has no history of substance use. Patient gives a strong history of tobacco smoking. Blood work has been drawn. ESR to check for inflammatory markers has been ordered. Based on the results, a follow-up visit will be scheduled and further workup initiated. Orders: Orders Basic Metabolic Panel Today R60.0 - Localized edema Liver Panel Today R60.0 - Localized edema Lipid Panel Today R60.0 - Localized edema Thyroid Stimulating Hormone Today R60.0 - Localized edema Erythrocyte Sedimentation Rate Today R60.0 - Localized edema NACHO Reflex Titer and Pattern Today R60.0 - Localized edema Complete Blood Count no Diff Today R60.0 - Localized edema UA and rflx microscopic Today R60.0 - Localized edema Coding Level of Care Code Est Pt Level 4 (96650) Complex EM visit Add On G2211 Diagnoses Edema of both feet R60.0
[2024-04-26 10:22] VITALS: BP 136/80; PULSE 101; O2SAT 95; BMI 30.5
== END 2024-04-26 11:14 | disposition home or self-care (01) ==
PROVIDERS: PCP Internal Medicine; Visit Provider Internal Medicine
DX: R60.0 Localized edema (principal)
CPT/HCPCS: 99214

== ENCOUNTER 2024-05-05 11:40 | Outpatient (REF) | payer OTHER, SELFPAY ==
[2024-05-05 12:09] LABS: Hemoglobin 14.5 g/dl (14.0-18.0); Mean Corpuscular Hemoglobin 31.3 pg (27.0-33.0); Mean Platelet Volume 10.2 fL (9.4-12.4); Platelet Count 270 X10*3/uL (160-400); Red Blood Count 4.63 X10*6/uL (4.60-5.80); Red Cell Distribution Width 11.5 % (11.0-16.0); White Blood Count 8.8 X10*3/uL (4.8-10.8)
[2024-05-05 12:45] LABS: Alanine Aminotransferase 9 U/L (0-40); Albumin Level 4.1 g/dL (3.5-5.0); Alkaline Phosphatase 87 U/L (39-117); Anion Gap 13 (12-20); Aspartate Amino Transferase 15 U/L (5-37); Bilirubin Direct 0.2 mg/dL (0.0-0.5); Bilirubin Total 0.6 mg/dL (0.0-1.0); Blood Urea Nitrogen 11 mg/dL (9-16); Calcium 9.2 mg/dL (8.4-10.2); Carbon Dioxide 27 mmol/L (22-29); Chloride 106 mmol/L (96-108); Cholesterol 147 mg/dL (<200); Estimated Glomerular Filt Rate > 60; Glucose Random 122 mg/dL (60-115); HDL Cholesterol 45 mg/dL (>40); LDL Cholesterol Calculated 81 mg/dL (<100); Potassium 3.8 mmol/L (3.3-5.1); Sodium 142 mmol/L (135-145); Total Protein 7.1 g/dL (6.5-8.0); Triglycerides 107 mg/dL (<150)
[2024-05-05 12:58] LABS: Erythrocyte Sedimentation Rate 10 MM/HR (0-15)
[2024-05-05 13:00] LABS: Thyroid Stimulating Hormone 0.72 uIU/mL (0.32-4.0)
[2024-05-06 04:04] LABS: Syphilis Screen Nonreactive (Nonreactive)
[2024-05-06 04:06] LABS: Hepatitis A Antibody IgM 0.17 Index (0-0.79); ~Hepatitis A Antibody IgM Nonreactive (Nonreactive)
[2024-05-06 04:21] LABS: HBS Num1 58.34 mIU/mL (0-7.99); HBc Num1 4.06 S/CO (0.00-0.79); HBsAGNum1 0.29 S/CO (0.00-0.99); HIV AB/AG Nonreactive (Nonreactive); HIV Num 1 0.05 S/CO (0.00-0.99); Hepatitis B Surface Antigen Negative (Negative); ~HepC Num1 14.61 S/CO (0.00-0.79); ~Hepatitis B Surface Antibody REACTIVE (Nonreactive); ~Hepatitis C Antibody Reactive (Nonreactive)
[2024-05-06 05:24] LABS: HBc Num2 3.86 S/CO; HBc Num3 3.99 S/CO; Hepatitis B Core Antibody Reactive (Nonreactive)
[2024-05-09 15:33] LABS: Anti Nuclear Antibody Pattern Nuclear, Centromere; Anti Nuclear Antibody Screen POSITIVE (NEGATIVE)
== END 2024-05-05 11:41 | disposition home or self-care (01) ==
LOC: HO.LAB 11:40
PROVIDERS: Absent Provider Internal Medicine; PCP Internal Medicine; Visit Provider Internal Medicine
DX: Z11.3 Encounter for screening for infections with a predominantly sexual mode of transmission (principal); R60.0 Localized edema; R76.8 Other specified abnormal immunological findings in serum
CPT/HCPCS: 36415; 80048; 80061; 80076; 82550; 84443; 85027; 85652; 86038; 86039; 86704; 86706; 86709; 86780; 86803; 87340; 87389

== ENCOUNTER 2024-05-13 08:26 | Outpatient (AMB) | payer OTHER, SELFPAY ==
[2024-05-13 08:34] VITALS: BMI 30.5
--- NOTE | 2024-05-13 08:34 | A.OFFVIS_ITS ---
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 patient falls asleep anywhere, he snores alot and loud. he chokes and gasps for air. Apartment Groundskeeper Required: Yes Apartment Groundskeeper Services: Apartment Groundskeeper Present Apartment Groundskeeper Name: alma silva Information Interpreted: non-clinical & clinical Allergies ibuprofen [From MOTRIN] Allergy (Intermediate, Verified 05/13/24 08:37) RASH/ITCH, swelling Medication List - Last Reconciled 05/13/24 by Ana Dallas, JOCELIN quetiapine (Seroquel) 25 mg PO BEDTIME HPI Comments Details: 42-yr-old male presents for new in-person patient visit for sleep consultation. Pt is accompanied by his , Aria Wells. Patient reports he has always been sleepy even as a child, but ~ 8 yrs ago he started to become even more sleepy. Now, whenever he is sitting he will start to fall asleep. Pt states he does not drive, Note pt was recently seen in urgent care- in hopes of re-establishing care, and to check on his hand and leg swelling. Lab work-up was notable for positive NACHO 1:1280 w/ nuclear, centromere pattern. Pt states he has a h/o lupus but has not seen rheumatology since 2021. Sleep questionnaire: Have you ever been diagnosed with a sleep disorder? No Have you ever had a sleep study in the past? No Have you ever been treated for a sleep disorder? No Do you take medications for a sleep disorder? No Do you have difficulty initiating sleep? No Do you have difficulty maintaining sleep? No . Do you wake up tired? No Do you have daytime tiredness or fatigue? No Do you easily fall asleep when inactive? Yes Do you snore? Yes Do you wake up gasping at night? Yes Do you have episodes of apneas? No Do you have episodes of nocturnal chest pain or dyspnea? No Do you have bruxism? No Do you have headaches upon awakening? Yes, wakes up most days with a strong bitemporal pressure headcahe a/w photophobia. Do you wake up with dry mouth or throat? No Do you have GERD? Yes Do you have nocturia? No Do you have nocturnal leg cramps? Yes Do you have symptoms of restless legs? Yes, and has Urge to move, Restlessness,Creepy crawling sensation,Cramps. Do you act out your dreams? Yes, he talks, laughs, yells, punches, kicks. Denies sleep walking. Has not been injured. Do you have sleep paralysis? Denies Do you have drop attacks? Denies Do you ever have hypnogenic hallucinations? Yes, has hallucinations upon awakening Rarely when falling asleep. Do you dream quickly after falling asleep? Yes, even when he falls asleep during the day. Hypersomnolence questionnaire: Have you ever had episodes of sudden weakness? yes Have you ever had episodes of sudden weakness associated with strong emotions? yes- when very happy, arms feel weak. Sleep hygiene questionnaire: What is your usual sleep routine? Usual bedtime is hard to say as he is sleeping all the time when he is not active. Usual wake-up time also varies- if he is not working, he will sleep all day. and night. Do you take naps? Unscheduled falling asleep. Is your sleep environment cool, dark, and quiet? Yes Do you exercise? Rides a bike. Do you take caffeine or other stimulants? 1 cup coffee in am. Denies alcohol, marijuana or illicit drug use. Does smoke cigarettes. Do you use electronics in bed? 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 [facility] Medical History Screen for STD (sexually transmitted disease) Drowsy Positive NACHO (antinuclear antibody) History of lupus anticoagulant disorder Lupus arthritis Polyarthralgia History of heroin use Insomnia Depression with anxiety Surgical History No pertinent past surgical history Family History Father Diabetes Hypertension Chronic mental illness Mother No problems noted. Family/Other Chronic mental illness Substance use disorder Social History Housing: Apartment Alcohol intake: never Patient Tobacco Use Status: Current everyday Tobacco user Tobacco use type: Cigarette Cigarette Packs Per Day: 2 Cigarettes Per Day: 40 e-Cigarette/Vaping Use: Never Used Second Hand Smoke Exposure: Yes service: No Current occupational status: unemployed Cognitive needs: No Hearing needs: No Vision needs: No Physical Exam Vital Signs: BMI result Body Mass Index 30.5 Const Other: Pt repeatedly dozing off throughout visit, sometimes even mid-conversation. General: no acute distress Orientation/consciousness: patient oriented x3 Resp Effort & Inspection: normal respiratory effort and able to speak in complete sentences Cardio Rate: regular rate Rhythm: regular rhythm Neuro General: patient oriented x3 Psych Mental Status: mental status grossly normal Speech and movement: Clear speech present Attitude: cooperative Assessment & Plan Assessment & Plan (1) Hypersomnia: Code(s): G47.10 - Hypersomnia, unspecified Category: Medical (2) Snoring: Code(s): R06.83 - Snoring Category: Medical (3) Sleep difficulties: Code(s): G47.9 - Sleep disorder, unspecified Category: Medical (4) Parasomnia: Code(s): G47.50 - Parasomnia, unspecified Category: Medical Plan Pt is advised to undergo sleep study to assess for sleep apnea: urgent in-lab PSG w/ MSLT (w/ routine urine drug screen on day of study) d/t severity pt's daytime sleepiness symptoms, as well as parasomnias, hypnogenic hallucinations, and symptoms sugegstive of cataplexy. If sleep study inconclusive, consider CSF orexin level. Stop quetiapine- pt is not having difficulty falling asleep and needs to be stopped prior to MSLT study. Requested rheumatology f/u appt- scheduled for 07/05/24. Check labs to round out hypersomnia work-up. Pt advised to NOT drive. Will follow-up upon review of above and patient to follow-up in clinic in 3-6 months or sooner prn. Orders: Orders Vitamin B12 and Folate Today G47.10 - Hypersomnia, unspecified, M32.9 - Syst emic lupus erythematosus, unspecified, R20.0 - Anesthesia of skin, R76.8 - Other specified abnormal immunological findings in serum RT sleep testing - MSLT Today G47.10 - Hypersomnia, unspecified, G47.50 - Parasomnia, unspecified Drug Screen Urine Today G47.10 - Hypersomnia, unspecified, G47.50 - Parasomnia, unspecified RT PSG in-lab sleep study Today G47.10 - Hypersomnia, unspecified, G47.9 - Sleep disorder, unspecified, R06.83 - Snoring Rheumatoid Factor Today G47.10 - Hypersomnia, unspecified, M32.9 - Systemic lupus erythematosus, unspecified, R20.0 - Anesthesia of skin, R76.8 - Other specified abnormal immunological findings in serum Vitamin D 25-OH (D2 and D3) Today G47.10 - Hypersomnia, unspecified, M32.9 - Systemic lupus erythematosus, unspecified, R20.0 - Anesthesia of skin, R76.8 - Other specified abnormal immunological findings in serum Coding Level of Care Code New Pt Level 4 (97528) Diagnoses Hypersomnia G47.10 Snoring R06.83 Sleep difficulties G47.9 Parasomnia G47.50 Clyde Sleepiness Scale Questions Sitting and reading: high chance of dozing Watching TV: high chance of dozing Sitting inactive in a theater, movie etc.: high chance of dozing As a passenger in a car for an hour without break: high chance of dozing Lying down in the afternoon when circumstances permit: high chance of dozing Sitting and talking to someone: high chance of dozing Sitting quietly after lunch without alcohol: high chance of dozing In a car, while stopped for a few minutes in the traffic: high chance of dozing ESS < 10: normal, ESS > 12: pathologic: 24
== END 2024-05-13 09:42 | disposition home or self-care (01) ==
PROVIDERS: PCP Internal Medicine; Visit Provider Nurse Practitioner Family
DX: G47.10 Hypersomnia, unspecified (principal); R06.83 Snoring; G47.9 Sleep disorder, unspecified; G47.50 Parasomnia, unspecified
CPT/HCPCS: 99204

== ENCOUNTER → 2024-05-13 08:26 | Outpatient (BNVA) | payer OTHER, SELFPAY | PROVIDERS: PCP Internal Medicine; Visit Provider Nurse Practitioner Family | DX: G47.10 Hypersomnia, unspecified (principal); G47.50 Parasomnia, unspecified; G47.9 Sleep disorder, unspecified; R06.83 Snoring | CPT/HCPCS: 99202 ==

== ENCOUNTER 2024-05-16 10:30 | Outpatient (AMB) | payer OTHER, SELFPAY ==
--- NOTE | 2024-05-16 10:32 | A.OFFPC_ITS ---
Vital Signs 05/16/24 10:33 05/16/24 10:38 Height 5 ft 6 in Weight 190 lb 8 oz BMI 30.7 BP 140/100 H 130/80 Blood Pressure Location Lt brachial Lt brachial Position Sitting Sitting Pulse 91 Pulse Source Pulse Oximeter Pulse Oximetry (%) 95 Oxygen Delivery Method Room Air Intake Visit Reasons: Abnormal Labs Intake Note: Patient is here to follow up on abnormal lab results. Request for Rheumatology referral Silk Screen Printing Racker Required: Yes Silk Screen Printing Racker Language: Wirer Helper Name: Peng ([id number]) Information Interpreted: non-clinical & clinical Fire Management Technician: Not Required per policy Accompanied by: Self / Same As Patient Allergies ibuprofen [From MOTRIN] Allergy (Intermediate, Verified 05/16/24 10:33) RASH/ITCH, swelling Tobacco use date assessed: 05/16/24 Dental Screening Dental Screen Date: 04/26/24 HPI Abnormal Labs HPI Details Found patient sleeping in the room. He only speaks Macanese. Silk Screen Printing Racker thru the ipad. During the interview patient again started snoring. I woke him up and asked if he had an attendant. He reported that his was in the waiting room. I went and fetched her. She also does not speak Sammarinese and the industrial ecology technician thru the ipad was used. His reports that patient falls asleep most of the time. This is when he is not working. 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 Does not drive. This has been going on for a few years. [place] of [place] prevented them from coming earlier. Was seen by neuro earlier and has been scheduled for a sleep study. The Seroquel has been discontinued. [facility] Medical History (Updated 05/17/24 @ 19:47 by Prabhakar Elliott MD) Hepatitis C infection Lupus arthritis Screen for STD (sexually transmitted disease) Drowsy Positive NACHO (antinuclear antibody) History of lupus anticoagulant disorder Polyarthralgia History of heroin use Insomnia Depression with anxiety Surgical History No pertinent past surgical history Family History Father Diabetes Hypertension Chronic mental illness Mother No problems noted. Family/Other Chronic mental illness Substance use disorder Social History (Reviewed 05/16/24 @ 10:32 by CAROLEE Whitman Housing: Apartment Alcohol intake: never Patient Tobacco Use Status: Current everyday Tobacco user Tobacco use type: Cigarette Cigarette Packs Per Day: 2 Cigarettes Per Day: 40 e-Cigarette/Vaping Use: Never Used Second Hand Smoke Exposure: Yes service: No Current occupational status: unemployed Cognitive needs: No Hearing needs: No Vision needs: No Questionnaire Thrive Questionnaire Date Thrive assessed: 04/26/24 Are you currently unemployed and looking for a job?: No TUAN-7 AMB Questionnaire TUAN-7 Date TAUN - 7 assessed: 04/26/24 Source: Developed by Drs. Forrest Villareal, Reene Merino, Jeremias Meneses and colleagues, with an educational rachel from [employer]. Physical exam (Primary Care) Vital Signs: Last Vital Signs Pulse 91 05/16/24 10:33 BP 130/80 05/16/24 10:38 Pulse Ox 95 05/16/24 10:33 Oxygen Delivery Method Room Air 05/16/24 10:33 BMI result Body Mass Index 30.7 Tobacco/Smoking Status: Tobacco use Status Tobacco use date assessed 05/16/24 05/16/24 10:37 Patient Tobacco Use Status Current everyday Tobacco 05/16/24 10:32 Tobacco use type Cigarette 05/16/24 10:32 e-Cigarette/Vaping Use Never Used 05/16/24 10:32 Thrive Assessment: Date of Thrive Assessment Date Thrive assessed 04/26/24 05/16/24 10:32 Const Other: Patient is groggy, but answers questions appropriately General: cooperative and healthy appearing Nutritional Appearance: well nourished Orientation/consciousness: patient oriented x3 Limitations: no limitations HENMT Head: Yes normal to inspection Eyes General: appearance normal, both eyes and all related structures Neck Neck: Yes normal visual inspection Chest Chest palpation & inspection: normal palpation of entire chest wall Resp Effort & Inspection: normal respiratory effort Neuro General: patient oriented x3 Assessment and Plan Assessment & Plan (1) Sleep difficulties: Code(s): G47.9 - Sleep disorder, unspecified Plan: Unsure, if patient is having narcolepsy or severe JOHN. Will discuss with neurologist on treatment options. Positive NACHO. A rheum appt has been scheduled. Positive for HCV ab. Further testing ordered. (2) Hepatitis C infection: Code(s): B19.20 - Unspecified viral hepatitis C without hepatic coma Orders: Orders Hepatitis C Viral Load Today B19.20 - Unspecified viral hepatitis C without hepatic coma Coding Level of Care Code Est Pt Level 4 (86082) Complex EM visit Add On G2211 Diagnoses Sleep difficulties G47.9 Hepatitis C infection B19.20
[2024-05-16 10:33] VITALS: BP 140/100; PULSE 91; O2SAT 95; BMI 30.7
[2024-05-16 10:38] VITALS: BP 130/80
== END 2024-05-16 11:23 | disposition home or self-care (01) ==
PROVIDERS: PCP Internal Medicine; Visit Provider Internal Medicine
DX: G47.9 Sleep disorder, unspecified (principal); B19.20 Unspecified viral hepatitis C without hepatic coma

== ENCOUNTER → 2024-05-16 10:30 | Outpatient (BNVA) | payer OTHER, SELFPAY | PROVIDERS: PCP Internal Medicine; Visit Provider Internal Medicine | DX: B19.20 Unspecified viral hepatitis C without hepatic coma (principal) | CPT/HCPCS: 99212 ==

== ENCOUNTER → 2024-06-23 20:20 | Outpatient (REF) | payer OTHER, SELFPAY | LOC: HO.SL 20:20 | PROVIDERS: PCP Internal Medicine; Visit Provider Nurse Practitioner Family | DX: G47.10 Hypersomnia, unspecified (principal); R06.83 Snoring; G47.9 Sleep disorder, unspecified | CPT/HCPCS: 95810 ==

== ENCOUNTER → 2024-06-23 23:34 | Outpatient (BNV) | payer OTHER, SELFPAY | PROVIDERS: PCP Internal Medicine; Visit Provider Psychiatry & Neurology Neurology | DX: G47.33 Obstructive sleep apnea (adult) (pediatric) (principal) | CPT/HCPCS: 95810 ==

== ENCOUNTER 2024-07-04 14:15 | Outpatient (REF) | payer OTHER, SELFPAY ==
[2024-07-04 15:17] LABS: Rheumatoid Factor < 13.0 IU/mL (<15.0)
[2024-07-04 15:45] LABS: Folate 9.9 ng/mL (> or = 4.0); Vitamin B12 592 pg/mL (200-900)
[2024-07-06 14:44] LABS: HCV Log PCR <1.18 NOT DETECTED Log IU/mL (NOT DETECTED); HepC Viral Load <15 NOT DETECTED IU/mL (NOT DETECTED)
[2024-07-08 14:13] LABS: Vitamin D 25-OH, D2 <4 ng/mL; Vitamin D 25-OH, D3 18 ng/mL; Vitamin D 25-OH, Total 18 ng/mL (30-100)
== END 2024-07-04 14:16 | disposition home or self-care (01) ==
LOC: HO.LAB 14:15
PROVIDERS: Nurse Practitioner Family; PCP Internal Medicine; Visit Provider Internal Medicine
DX: B19.20 Unspecified viral hepatitis C without hepatic coma (principal); G47.10 Hypersomnia, unspecified; M32.9 Systemic lupus erythematosus, unspecified; R76.8 Other specified abnormal immunological findings in serum; R20.0 Anesthesia of skin; G47.33 Obstructive sleep apnea (adult) (pediatric)
CPT/HCPCS: 36415; 82306; 82607; 82746; 86431; 87522; 99212

== ENCOUNTER 2024-07-04 14:36 | Outpatient (AMB) | payer OTHER, SELFPAY ==
[2024-07-04 14:46] VITALS: BP 130/80; PULSE 84; O2SAT 96; BMI 29.5
--- NOTE | 2024-07-04 14:46 | A.OFFVIS_ITS ---
Vital Signs 07/04/24 14:46 Height 5 ft 6 in Weight 183 lb BMI 29.5 BP 130/80 Blood Pressure Location Lt brachial Position Sitting Pulse 84 Pulse Source Pulse Oximeter Pulse Oximetry (%) 96 Oxygen Delivery Method Room Air Intake Visit Reasons: +NACHO Intake Note: Patient presents today for follow up on +NACHO, was last seen in the office on 03/03/[address] Bennett. Patient is positive for Lupus. E Learning Coordinator Name: Petey [id number] Accompanied by: Spouse Allergies ibuprofen [From MOTRIN] Allergy (Intermediate, Verified 05/16/24 10:33) RASH/ITCH, swelling HPI Comments Details: Patient is a 48-year-old male with depression and anxiety, history of hepatitis- C infection and history of heroin use who presents for follow-up for polyarthralgias in the setting of positive NACHO and anticentromere Interval History: Since the last visit patient was diagnosed with sleep apnea however has not started his CPAP. Continues to have swelling of the hands and feet. Denies rashes, photosensitivity, alopecia, oral/nasal ulcers, sicca symptoms, lymphadenopathy, chest pain/shortness of breath, inflammatory type joint pain, foamy urine, muscle weakness, Raynaud's Also denies history of seizure, CVA, psychosis, history of kidney problems, history of cytopenias, history of VTE including PE or DVTs Rheumatologic History: Patient was 1st evaluated 12/2020 after being referred for positive NACHO and polyarthralgia. During his evaluation he was noted to have puffy hands but his joints were unremarkable. His evaluation included an MRI of his right hand which revealed no erosions or other degenerative arthritic changes. Since he was complaining of numbness and tingling involving his fingers he was evaluated with an EMG 07/2022 which showed mild ulnar nerve entrapment at the cubital tunnel but otherwise within normal limits Current Rheumatology Medication(s): [facility] Medical History (Updated 07/04/24 @ 15:25 by Heidi Haider MD) JOHN (obstructive sleep apnea) Hepatitis C infection Screen for STD (sexually transmitted disease) Drowsy Positive NACHO (antinuclear antibody) History of lupus anticoagulant disorder Polyarthralgia History of heroin use Insomnia Depression with anxiety Surgical History No pertinent past surgical history Family History Father Diabetes Hypertension Chronic mental illness Mother No problems noted. Family/Other Chronic mental illness Substance use disorder Social History Housing: Apartment Alcohol intake: never Patient Tobacco Use Status: Current everyday Tobacco user Tobacco use type: Cigarette Cigarette Packs Per Day: 2 Cigarettes Per Day: 40 e-Cigarette/Vaping Use: Never Used Second Hand Smoke Exposure: Yes service: No Current occupational status: unemployed Cognitive needs: No Hearing needs: No Vision needs: No Review of Systems Const Details: Review of Systems Constitutional: Denies fever, chills, weight loss ENT: Denies vision changes, eye pain or eye redness, dental caries, dry mouth GI: Denies nausea, vomiting, diarrhea, abdominal pain, change in BM Pulm: Denies SOB, OROSCO, hemoptysis, wheezing Cards: Denies chest pain, palpitations Skin: Denies Raynaud's, rash, nail changes, photosensitivity, MISSION COORDINATOR: Denies headaches, weakness, paresthesias, recurrent falls MSK: as per HPI All other systems reviewed and are unremarkable except noted above Physical Exam Vital Signs: Last Vital Signs Pulse 84 07/04/24 14:46 BP 130/80 07/04/24 14:46 Pulse Ox 96 07/04/24 14:46 Oxygen Delivery Method Room Air 07/04/24 14:46 BMI result Body Mass Index 29.5 Physical Examination CONSTITUITIONAL Patient alert and cooperative. Well appearing and in no apparent painful distress HEENT Conjunctiva and sclera clear. ?Pupils equal round and reactive to light. ?No lymphadenopathy. ?Normal dentition. No oral or nasal ulcers noted. No evidence of discoid rash to the jeffrey of ears CHEST/RESPIRATORY SYSTEM Normal respiratory effort and able to speak in complete sentences. ?Clear to auscultation bilaterally. ?No crackles, rales, rhonchi, wheezes heard. CARDIAC SYSTEM Regular rate and rhythm. ?S1 and S2 heard no murmurs. ?Radial pulses intact bilaterally MSK Hands: ?Good tractor mechanic apprentice strength bilaterally - 5/5. ?No deformities noted. ?No synovitis noted to the MCPs, PIPs or DIPs. ?No tenderness to palpation of these joints. Erythromelalgia involving the hands but no synovitis Wrists: ?Full range of motion at the wrists without pain. ?No tenderness to palpation or synovitis noted to the wrists. Elbows: Full range of motion without pain. No tenderness, weakness, swelling, increased warmth or erythema. Shoulders: Full range of motion without pain. No tenderness, weakness, swelling, increased warmth or erythema. Hips: Full range of motion without pain. Hip bursa: No tenderness to palpation Knees: ?Full range of motion. ?No tenderness, swelling, increased warmth or erythema.?No effusion or crepitations Ankles: Full range of motion. ?No tenderness, swelling, increased warmth or er ythema.? Feet: ?Negative squeeze test. ?No tenderness to palpation or swelling of the MTPs. SKIN Skin intact without rashes. Results Reviewed Results Reviewed: Laboratory Tests 05/05/24 11:53 WBC 8.8 RBC 4.63 Hgb 14.5 Hct 44.0 Plt Count 270 ESR 10 Sodium 142 Potassium 3.8 Chloride 106 Carbon Dioxide 27 BUN 11 Creatinine 0.85 AST 15 ALT 9 Laboratory Tests 12/27/20 03/17/22 05/05/24 11:37 13:59 11:53 Rheumatoid Factor < 15.0 Cycl Citrul Peptide IgG <16 NACHO Screen POSITIVE A NACHO Titer 1:1280 H NACHO Pattern Nuclear, Centromere A SS-A/Ro Antibody <1.0 NEG SS-B/La Antibody <1.0 NEG Sm (Abraham) Antibody <1.0 NEG <1.0 NEG SM/SUPERVISING LAW ENFORCEMENT ANALYST IgG Antibody <1.0 NEG <1.0 NEG Scl-70 Scleroderma Ab <1.0 NEG Double Strand DNA Ab <1 <1 Centromere B Antibody >8.0 POS A Thyroglobulin Antibody <1 Thyroid Peroxidase Ab <1 Anti-Cardiolipin IgG Ab <14 Anti-Cardiolipin IgM Ab <12 Complement C3 135 Complement C4 39 MRI Right Hand 02/05/2021 MUSCLES/TENDONS: Intact. LIGAMENTS: Accounting for the large [id number]-rers, the triangular fibrocartilage and scapholunate and lunotriquetral ligaments appear intact. ARTICULAR CARTILAGE/BONE: There are no erosions. There are no other apparent degenerative arthritic changes. There are is no bone marrow edema. JOINT FLUID/BURSA/SOFT TISSUES: Within normal limits. IMPRESSION: Unremarkable MRI of the right hand. Assessment & Plan Assessment & Plan (1) Positive NACHO (antinuclear antibody): Comment: 10/2020: 1:640, centromere pattern Code(s): R76.8 - Other specified abnormal immunological findings in serum Category: Medical Plan: #Positive NACHO No signs or symptoms at this time concerning for autoimmune disease such as lupus, scleroderma, Sjogren's or any others. Workup in the past was unrevealing for objective evidence of synovitis or inflammation. No further workup at this time. Patient and advised of signs to look out for such as Raynaud's, skin tightness, alopecia and oral/nasal ulcers. (2) JOHN (obstructive sleep apnea): Code(s): G47.33 - Obstructive sleep apnea (adult) (pediatric) Category: Medical Plan: #JOHN Patient has untreated obstructive sleep apnea which can be associated with erythromelalgia type symptoms involving the hands and the feet. The mechanism of this is due to the apneic periods and low oxygen during those times. Advised to get CPAP machine Plan I spent 20 minutes reviewing the record and labs, seeing the patient, discussing the treatment plan and documenting in the medical record ? Coding Level of Care Code Est Pt Level 3 (68270) Diagnoses Positive NACHO (antinuclear antibody) R76.8 JOHN (obstructive sleep apnea) G47.33
== END 2024-07-04 15:23 | disposition home or self-care (01) ==
PROVIDERS: PCP Internal Medicine; Visit Provider Student in an Organized Health Care Education/Training Program
DX: R76.8 Other specified abnormal immunological findings in serum (principal); G47.33 Obstructive sleep apnea (adult) (pediatric)
CPT/HCPCS: 99213

== ENCOUNTER 2024-07-12 13:49 | Outpatient (AMB) | payer OTHER, SELFPAY ==
[2024-07-12 13:52] VITALS: BP 170/108; PULSE 103; O2SAT 94; BMI 29.9
--- NOTE | 2024-07-12 13:52 | A.OFFPC_ITS ---
Vital Signs 07/12/24 13:52 Height 5 ft 6 in Weight 185 lb BMI 29.9 BP 170/108 H Blood Pressure Location Lt brachial Position Sitting Pulse 103 H Pulse Source Pulse Oximeter Pulse Oximetry (%) 94 Oxygen Delivery Method Room Air Intake Visit Reasons: 1mnth f/u lupus Scraper Tender Required: No Allergies ibuprofen [From MOTRIN] Allergy (Intermediate, Verified 07/12/24 13:52) RASH/ITCH, swelling Tobacco use date assessed: 05/16/24 Dental Screening Dental Screen Date: 04/26/24 HPI 1mnth f/u lupus HPI Details 48 yr old male presents to the office fo r a follow up visit. Since last OV, he was seen at the sleep center and diagnosed with JOHN. However, pt has not recvd his CPAP machine. He has also seen the build engineer and is requesting a reinterpretation of his visit there. Patient is fluent in Wolof and an stabber was used, [facility] Medical History (Updated 07/04/24 @ 15:25 by Heidi Haider MD) JOHN (obstructive sleep apnea) Hepatitis C infection Screen for STD (sexually transmitted disease) Drowsy Positive NACHO (antinuclear antibody) History of lupus anticoagulant disorder Polyarthralgia History of heroin use Insomnia Depression with anxiety Surgical History No pertinent past surgical history Family History Father Diabetes Hypertension Chronic mental illness Mother No problems noted. Family/Other Chronic mental illness Substance use disorder Social History Housing: Apartment Alcohol intake: never Patient Tobacco Use Status: Current everyday Tobacco user Tobacco use type: Cigarette Cigarette Packs Per Day: 2 Cigarettes Per Day: 40 e-Cigarette/Vaping Use: Never Used Second Hand Smoke Exposure: Yes service: No Current occupational status: unemployed Cognitive needs: No Hearing needs: No Vision needs: No Questionnaire Thrive Questionnaire Date Thrive assessed: 04/26/24 I am a: Patient What is your living situation today?: I have a steady place to live Within the past 12 months, did the food you bought not last and you didn't have the money to get more?: Never true Within the past 12 months, did you worry whether your food would run out before you got money to buy more?: Never true Do you have trouble paying for medicines?: No Do you have trouble getting transportation to medical appointments?: No Do you have trouble paying your heating and electricity bill?: No Do you have trouble taking care of your child, family member or friend?: No Do you have trouble with day-to-day activities such as bathing, preparing meals, shopping, managing finances, etc.?: No Are you currently unemployed and looking for a job?: No Are you interested in more education?: No Please select the resources that you would like help with: None Currently or been in a relationship where the following occur: No concerns reported THRIVE Score: 0 AUDIT C Alcohol Use Questionnaire (AUDIT-C) 1. How often do you have a drink containing alcohol?: Never 3. How often do you have six or more drinks on one occasion?: Never Total Score: 0 TUAN-7 AMB Questionnaire TUAN-7 Date TUAN - 7 assessed: 04/26/24 Feeling nervous, anxious, or on edge: 0 = Not at all Not being able to stop or control worryin = Not at all Worrying too much about different things: 0 = Not at all Trouble relaxin = Not at all Being so restless that it is hard to sit still: 0 = Not at all Becoming easily annoyed or irritable: 0 = Not at all Feeling afraid as if something awful might happen: 0 = Not at all Total TUAN-7 score (0-4 normal; 5-9 mild; 10-14 moderate; 15-21 severe): 0 Source: Developed by Drs. Forrest Villareal, Renee Merino, Jeremias Meneses and colleagues, with an educational rachel from [employer]. Physical exam (Primary Care) Vital Signs: Last Vital Signs Pulse 103 H 07/12/24 13:52 BP 170/108 H 07/12/24 13:52 Pulse Ox 94 07/12/24 13:52 Oxygen Delivery Method Room Air 07/12/24 13:52 BMI result Body Mass Index 29.9 Tobacco/Smoking Status: Tobacco use Status Tobacco use date assessed 05/16/24 07/12/24 13:53 Patient Tobacco Use Status Current everyday Tobacco 07/12/24 13:53 Tobacco use type Cigarette 07/12/24 13:53 e-Cigarette/Vaping Use Never Used 07/12/24 13:53 Thrive Assessment: Date of Thrive Assessment Date Thrive assessed 04/26/24 07/12/24 13:53 Currently or been in a relationship where the following occur: No concerns reported Const General: cooperative and healthy appearing Nutritional Appearance: well nourished Orientation/consciousness: patient oriented x3 Limitations: no limitations HENMT Head: Yes normal to inspection Eyes General: appearance normal, both eyes and all related structures Neck Neck: Yes normal visual inspection Chest Chest palpation & inspection: normal palpation of entire chest wall Resp Effort & Inspection: normal respiratory effort Neuro General: patient oriented x3 Coding Level of Care Code Est Pt Level 4 (80604) Complex EM visit Add On G2211 Diagnoses Positive NACHO (antinuclear antibody) R76.8 JOHN (obstructive sleep apnea) G47.33 Assessment & Plan Assessment & Plan (1) Positive NACHO (antinuclear antibody): Comment: 10/2020: 1:640, centromere pattern Code(s): R76.8 - Other specified abnormal immunological findings in serum Category: Medical Plan: Patient was seen by the Diving Instructor. He was informed lupus was unlikely. Erythromelalgia is the alternate diagnosis. (2) JOHN (obstructive sleep apnea): Code(s): G47.33 - Obstructive sleep apnea (adult) (pediatric) Category: Medical Plan: Sleep clinic to be contacted regarding the CPAP machine.
== END 2024-07-12 14:26 | disposition home or self-care (01) ==
PROVIDERS: PCP Internal Medicine; Visit Provider Internal Medicine
DX: R76.8 Other specified abnormal immunological findings in serum (principal); G47.33 Obstructive sleep apnea (adult) (pediatric)

== ENCOUNTER → 2024-07-12 13:49 | Outpatient (BNVA) | payer OTHER, SELFPAY | PROVIDERS: PCP Internal Medicine; Visit Provider Internal Medicine | DX: R76.8 Other specified abnormal immunological findings in serum (principal); G47.33 Obstructive sleep apnea (adult) (pediatric) | CPT/HCPCS: 99212 ==

== ENCOUNTER 2024-10-27 14:47 | Outpatient (AMB) | payer OTHER, SELFPAY ==
--- NOTE | 2024-10-27 15:15 | MHC.PC.OV ---
Vital Signs 10/27/24 15:16 Height 5 ft 6 in Weight 197 lb BMI 31.8 BP 130/90 H Blood Pressure Location Lt brachial Position Sitting Pulse 104 H Pulse Source Pulse Oximeter Temp 97.3 F Temp Source Temporal Artery Scan Pulse Oximetry (%) 96 Oxygen Delivery Method Room Air Intake Visit Reasons: Annual Exam Intake Note: Patient is here today for a physical. Police Chief Deputy Required: Yes Police Chief Deputy Language: Evening Anchor Name: Babak ([id number]) Information Interpreted: non-clinical & clinical Graphic Design Assistant: Present Accompanied by: Spouse Allergies ibuprofen [From MOTRIN] Allergy (Intermediate, Verified 10/31/24 10:16) RASH/ITCH, swelling Medication List - Last Reconciled 10/31/24 by Prabhakar Elliott MD cholecalciferol (vitamin D3) 1,250 mcg PO QWEEK 12 weeks quetiapine (Seroquel) 25 mg PO BEDTIME Tobacco use date assessed: 10/27/24 Dental Screening Dental Screen Date: 10/27/24 Did you have a dental visit in the last 12 months?: Yes Did you have a dental problem in the last 6 months where you did not have access to dental care?: No Was dental information given to patient?: Patient has dentist HPI Annual Exam HPI Details 49-year-old male presents to the office along with a female hospital account liaison. The female hospital account liaison is doing most of the conversation. An aerial photograph interpreter is being used. Patient continues to sleep in the office. His hospital account liaison attributes it to his obstructive sleep apnea. He has to be woken up to have a conversation. Patient reports he has pain in both arm and hands. He has seen a telephone order clerk room service for his positive NACHO. However it has been deemed nonspecific. Patient presents for an annual exam. [facility] Medical History JOHN (obstructive sleep apnea) Hepatitis C infection Screen for STD (sexually transmitted disease) Drowsy Positive NACHO (antinuclear antibody) History of lupus anticoagulant disorder Polyarthralgia History of heroin use Insomnia Depression with anxiety Surgical History No pertinent past surgical history Family History Father Diabetes Hypertension Chronic mental illness Mother No problems noted. Family/Other Chronic mental illness Substance use disorder Social History Housing: Apartment Alcohol intake: never Patient Tobacco Use Status: Current everyday Tobacco user Tobacco use type: Cigarette Cigarette Packs Per Day: 2 Cigarettes Per Day: 40 e-Cigarette/Vaping Use: Never Used Second Hand Smoke Exposure: Yes service: No Current occupational status: unemployed Cognitive needs: No Hearing needs: No Vision needs: No Questionnaire PHQ-9 Over the last 2 weeks, how often have you been bothered by any of the following problems? 1. Little interest or pleasure in doing things: nearly every day 2. Feeling down, depressed, or hopeless: nearly every day 3. Trouble falling or staying asleep, or sleeping too much: nearly every day 4. Feeling tired or having little energy: nearly every day 5. Poor appetite or overeating: several days 6. Feeling bad about yourself - or that you are a failure or have let yourself or your family down: nearly every day 7. Trouble concentrating on things, such as reading the newspaper or watching television: nearly every day 8. Moving or speaking so slowly that other people could have noticed. Or the opposite - being so fidgety or restless that you have been moving around a lot more than usual: nearly every day 9. Thoughts that you would be better off or of hurting yourself in some way: not at all Total score: 22 Depression Screening Interpretation: Positive Depression Screening Follow-up: Existing condition and In treatment Depression Screening Done: Yes Source: Developed by Drs. Forrest Villareal, Renee Merino, Jeremias Meneses and colleagues, with an educational rachel from [employer]. Thrive Questionnaire Date Thrive assessed: 10/27/24 I am a: Patient What is your living situation today?: I have a steady place to live Within the past 12 months, did the food you bought not last and you didn't have the money to get more?: I choose not to answer this question Within the past 12 months, did you worry whether your food would run out before you got money to buy more?: I choose not to answer this question Do you have trouble paying for medicines?: I choose not to answer this question Do you have trouble getting transportation to medical appointments?: No Do you have trouble paying your heating and electricity bill?: No Do you have trouble taking care of your child, family member or friend?: I choose not to answer this question Do you have trouble with day-to-day activities such as bathing, preparing meals, shopping, managing finances, etc.?: No Are you currently unemployed and looking for a job?: No Are you interested in more education?: I choose not to answer this question Please select the resources that you would like help with: None Currently or been in a relationship where the following occur: I choose not to answer THRIVE Score: 0 AUDIT C Alcohol Use Questionnaire (AUDIT-C) 1. How often do you have a drink containing alcohol?: Never Total Score: 0 TUAN-7 AMB Questionnaire TUAN-7 Date TUAN - 7 assessed: 10/27/24 Feeling nervous, anxious, or on edge: 3 = Nearly every day Not being able to stop or control worryin = More than half the days Worrying too much about different things: 3 = Nearly every day Trouble relaxin = Nearly every day Being so restless that it is hard to sit still: 3 = Nearly every day Becoming easily annoyed or irritable: 2 = More than half the days Feeling afraid as if something awful might happen: 1 = Several days Total TUAN-7 score (0-4 normal; 5-9 mild; 10-14 moderate; 15-21 severe): 17 Source: Developed by Drs. Forrest Villareal, Renee Merino, Jeremias Meneses and colleagues, with an educational rachel from [employer]. Physical exam (Primary Care) Vital Signs: Last Vital Signs Temp 97.3 F 10/27/24 15:16 Pulse 104 H 10/27/24 15:16 BP 130/90 H 10/27/24 15:16 Pulse Ox 96 10/27/24 15:16 Oxygen Delivery Method Room Air 10/27/24 15:16 Care Plan Goal for BP management: Blood pressure is stable. BMI result Body Mass Index 31.8 BMI Assessment/Plan discussion: High (1 lb per week weight loss suggested.) BMI High, discussed plan: lifestyle, weight reduction and dietary Tobacco/Smoking Status: Tobacco use Status Tobacco use date assessed 10/27/24 10/27/24 15:24 Patient Tobacco Use Status Current everyday Tobacco 10/27/24 15:24 Tobacco use type Cigarette 10/27/24 15:24 e-Cigarette/Vaping Use Never Used 10/27/24 15:24 PHQ-9: PHQ-9 Score PHQ-9: Total score 22 10/27/24 15:24 Depression Screening Interpretation: Positive Depression Screening Follow-up: Existing condition and In treatment Thrive Assessment: Date of Thrive Assessment Date Thrive assessed 10/27/24 10/27/24 15:24 Currently or been in a relationship where the following occur: I choose not to answer Const General: cooperative and healthy appearing Nutritional Appearance: well nourished Orientation/consciousness: patient oriented x3 Limitations: no limitations HENMT Head: Yes normal to inspection Eyes General: appearance normal, both eyes and all related structures Neck Neck: Yes normal visual inspection Chest Chest palpation & inspection: normal palpation of entire chest wall Resp Effort & Inspection: normal respiratory effort Neuro General: patient oriented x3 Extrem Other: Right and left hand: Dorsal erythema. Coding Level of Care Code Est Pt Level 4 (57170) Est Pt Prev Care 40-64y(18436) Diagnoses Hypersomnia G47.10 Depression with anxiety F41.8 History of heroin use Z87.898 Positive NACHO (antinuclear antibody) R76.8 Annual physical exam Z00.00 Assessment & Plan Assessment & Plan (1) Hypersomnia: Code(s): G47.10 - Hypersomnia, unspecified Category: Medical Plan: This is concerning. Patient did have an appointment with a neurologist in June. A sleep study has been scheduled. According to the patient's hospital account liaison, it is scheduled in the next couple of weeks. A call will be placed to their office to wonder if his symptoms could represent narcolepsy. Obstructive sleep apnea to be ruled out. (2) Depression with anxiety: Code(s): F41.8 - Other specified anxiety disorders Category: Medical Plan: Markedly elevated PHQ 9. Patient is on Seroquel 25 mg once a day. This medication is not enough. I encouraged the patient to see a therapist and a psychiatrist. Offered to make an appointment. (3) History of heroin use: Code(s): Z87.898 - Personal history of other specified conditions Category: Social Hx Plan: A drug screen has been requested. According to the female hospital account liaison, patient is not using any street drugs actively. (4) Positive NCAHO (antinuclear antibody): Comment: 10/2020: 1:640, centromere pattern Code(s): R76.8 - Other specified abnormal immunological findings in serum Category: Medical Plan: Patient has a positive NACHO and has seen a telephone order clerk room service. Autoimmune conditions like scleroderma, Sjogren syndrome and lupus have been ruled out. The erythema in the hand is attributed to his sleep apnea. (5) Annual physical exam: Code(s): Z00.00 - Encounter for general adult medical examination without abnormal findings Plan: Blood work has been ordered. Orders: Orders Drug Screen Urine 10/27/24 G47.10 - Hypersomnia, unspecified Medications: Refilled cholecalciferol (vitamin D3) 1,250 mcg PO QWEEK 12 weeks 12 caps 1RF E55.9 - Vitamin D deficiency, unspecified quetiapine (Seroquel) 25 mg PO BEDTIME 30 tabs 0RF
[2024-10-27 15:16] VITALS: BP 130/90; PULSE 104; TEMP 36.3; O2SAT 96; BMI 31.8
== END 2024-10-27 16:47 | disposition home or self-care (01) ==
PROVIDERS: PCP Internal Medicine; Visit Provider Internal Medicine
DX: Z00.00 Encounter for general adult medical examination without abnormal findings (principal); G47.10 Hypersomnia, unspecified; F41.8 Other specified anxiety disorders; Z87.898 Personal history of other specified conditions; R76.8 Other specified abnormal immunological findings in serum

== ENCOUNTER 2024-10-27 14:47 | Outpatient (REF) | payer OTHER, SELFPAY | END 2024-10-27 14:48 | disposition home or self-care (01) | LOC: HO.LAB 14:47 | PROVIDERS: PCP Internal Medicine; Visit Provider Internal Medicine | DX: Z00.00 Encounter for general adult medical examination without abnormal findings (principal); G47.10 Hypersomnia, unspecified; F41.8 Other specified anxiety disorders; R76.8 Other specified abnormal immunological findings in serum; Z87.898 Personal history of other specified conditions | CPT/HCPCS: 99212; 99396 ==

== ENCOUNTER 2025-03-24 11:00 | Outpatient (AMB) | payer OTHER, SELFPAY ==
[2025-03-24 10:59] VITALS: BP 140/90; PULSE 98; O2SAT 96; BMI 33.2
--- NOTE | 2025-03-24 10:59 | MHC.OFFVIS ---
Vital Signs 03/24/25 10:59 Height 5 ft 6 in Weight 206 lb BMI 33.2 BP 140/90 H Blood Pressure Location Rt brachial Position Sitting Pulse 98 Pulse Source Pulse Oximeter Pulse Oximetry (%) 96 Oxygen Delivery Method Room Air Intake Visit Reasons: Follow up Youth Care Professional Required: No Accompanied by: Self / Same As Patient Allergies ibuprofen (From MOTRIN) Allergy (Intermediate, Verified 03/24/25 11:03) RASH/ITCH, swelling HPI Comments Details: 49-yr-old male presents for f/u of in-lab PSG. 06/23/24, in-las PSG w/ split night titrations was notable for severe JOHN w/ AHI 107/hr and O2 [place] 69%, split night portion of study showed reduction in residual AHI on CPAP 12 cmH2O, however residual O2 [place] was 85%. 05/05/2024, labs were notable for: Positive NACHO 1:1280, nuclear centromere a; patient has reestablished care with Rheumatology-did not feel that patient had any active symptoms c/w rheumatological process, and that his hand symptoms were likely secondary to untreated severe sleep apnea. 07/04/2024, labs were notable for vitamin-D deficiency with level 18 low-patient was started on vitamin-D supplement, and since continue by PCP Patient's interval sleep study was consistent with severe degree of obstructive sleep apnea and nocturnal hypoxemia, thus the requested MSLT was not completed.. Patient was started on CPAP 12 cm H2O, based on results of the split night portion of the PAP titration study. Patient states that when he was sleeping with his CPAP machine, he felt that he slept better and had more daytime energy. However, patient states he has not been able to use the machine in over a month, as the CPAP tubing is broken. Unfortunately, his current PAP compliance report does not show any significant usage of his CPAP machine. He continues to have excessive hypersomnia. 04/27/2024, initial HPI: 48-yr-old male presents for new in-person patient visit for sleep consultation. Pt is accompanied by his , Aria Wells. Patient reports he has always been sleepy even as a child, but ~ 8 yrs ago he started to become even more sleepy. Now, whenever he is sitting he will start to fall asleep. Pt states he does not drive, Note pt was recently seen in urgent care- in hopes of re-establishing care, and to check on his hand and leg swelling. Lab work-up was notable for positive NACHO 1:1280 w/ nuclear, centromere pattern. Pt states he has a h/o lupus but has not seen rheumatology since 2021. Sleep questionnaire: Have you ever been diagnosed with a sleep disorder? No Have you ever had a sleep study in the past? No Have you ever been treated for a sleep disorder? No Do you take medications for a sleep disorder? No Do you have difficulty initiating sleep? No Do you have difficulty maintaining sleep? No . Do you wake up tired? No Do you have daytime tiredness or fatigue? No Do you easily fall asleep when inactive? Yes Do you snore? Yes Do you wake up gasping at night? Yes Do you have episodes of apneas? No Do you have episodes of nocturnal chest pain or dyspnea? No Do you have bruxism? No Do you have headaches upon awakening? Yes, wakes up most days with a strong bitemporal pressure headache a/w photophobia. Do you wake up with dry mouth or throat? No Do you have GERD? Yes Do you have nocturia? No Do you have nocturnal leg cramps? Yes Do you have symptoms of restless legs? Yes, and has Urge to move, Restlessness,Creepy crawling sensation,Cramps. Do you act out your dreams? Yes, he talks, laughs, yells, punches, kicks. Denies sleep walking. Has not been injured. Do you have sleep paralysis? Denies Do you have drop attacks? Denies Do you ever have hypnogenic hallucinations? Yes, has hallucinations upon awakening Rarely when falling asleep. Do you dream quickly after falling asleep? Yes, even when he falls asleep during the day. Hypersomnolence questionnaire: Have you ever had episodes of sudden weakness? yes Have you ever had episodes of sudden weakness associated with strong emotions? yes- when very happy, arms feel weak. Sleep hygiene questionnaire: What is your usual sleep routine? Usual bedtime is hard to say as he is sleeping all the time when he is not active. Usual wake-up time also varies- if he is not working, he will sleep all day. and night. Do you take naps? Unscheduled falling asleep. Is your sleep environment cool, dark, and quiet? Yes Do you exercise? Rides a bike. Do you take caffeine or other stimulants? 1 cup coffee in am. Denies alcohol, marijuana or illicit drug use. Does smoke cigarettes. Do you use electronics in bed? 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 [facility] Medical History JOHN (obstructive sleep apnea) Hepatitis C infection Screen for STD (sexually transmitted disease) Drowsy Positive NACHO (antinuclear antibody) History of lupus anticoagulant disorder Polyarthralgia History of heroin use Insomnia Depression with anxiety Surgical History No pertinent past surgical history Family History Father Diabetes Hypertension Chronic mental illness Mother No problems noted. Family/Other Chronic mental illness Substance use disorder Social History Housing: Apartment Alcohol intake: never Patient Tobacco Use Status: Current everyday Tobacco user Tobacco use type: Cigarette Cigarette Packs Per Day: 2 Cigarettes Per Day: 40 e-Cigarette/Vaping Use: Never Used Second Hand Smoke Exposure: Yes service: No Current occupational status: unemployed Cognitive needs: No Hearing needs: No Vision needs: No Physical Exam Vital Signs: Last Vital Signs Pulse 98 03/24/25 10:59 BP 140/90 H 03/24/25 10:59 Pulse Ox 96 03/24/25 10:59 Oxygen Delivery Method Room Air 03/24/25 10:59 BMI result Body Mass Index 33.2 Const Other: Pt repeatedly dozing off throughout visit, sometimes even mid-conversation. General: no acute distress Orientation/consciousness: patient oriented x3 Resp Effort & Inspection: normal respiratory effort and able to speak in complete sentences Cardio Rate: regular rate Rhythm: regular rhythm Neuro General: patient oriented x3 Psych Mental Status: mental status grossly normal Speech and movement: Clear speech present Attitude: cooperative Assessment & Plan Assessment & Plan (1) Severe obstructive sleep apnea: Code(s): G47.33 - Obstructive sleep apnea (adult) (pediatric) Category: Medical (2) Nocturnal hypoxemia: Code(s): G47.34 - Idiopathic sleep related nonobstructive alveolar hypoventilation Category: Medical (3) Hypersomnia: Code(s): G47.10 - Hypersomnia, unspecified Category: Medical (4) Snoring: Code(s): R06.83 - Snoring Category: Medical (5) Sleep difficulties: Code(s): G47.9 - Sleep disorder, unspecified Category: Medical (6) Parasomnia: Code(s): G47.50 - Parasomnia, unspecified Category: Medical Qualifiers: Parasomnia type: unspecified parasomnia Qualified Code(s): G47.50 - Parasomnia, unspecified Plan Reviewed results of interval in-lab sleep study with split night PAP titration-again results consistent with severe JOHN with nocturnal hypoxemia, with improvement in obstructive apneas at CPAP 12 cm H2O. Patient has since received CPAP 12 cm H2O, unfortunately he states he has been unable to use it due to a broken tubing. We will follow-up with respiratory company to request a machine/supply evaluation. Once patient has used CPAP consistently, times at least 2 weeks, check nocturnal pulse oximetry x1 night while on room air via CPAP 12 cm H2O. Unfortunately, at this time patient is likely not a candidate for inspire therapy, due to the severity of his obstructive sleep apnea. If symptoms of excessive daytime sleepiness, parasomnias, hypnagogic hallucinations persist after patient has consistently used his CPAP x1 month, consider follow-up workup to assess for possible narcolepsy with cataplexy, such as in-lab PSG/MSLT or CSF orexin level, Continue vitamin-D supplement, per PCP. Stop quetiapine- pt is not having difficulty falling asleep and would need to be stopped prior to a MSLT study. Pt advised to NOT drive. Will follow-up upon review of above and patient to follow-up in clinic in 3-6 months or sooner prn. Orders: Orders Overnight Pulse Oximetry Today G47.33 - Obstructive sleep apnea (adult) (pediatric), G47.34 - Idiopathic sleep related nonobstructive alveolar hypoventilation Coding Level of Care Code Est Pt Level 3 (42040) Diagnoses Severe obstructive sleep apnea G47.33 Nocturnal hypoxemia G47.34 Hypersomnia G47.10 Snoring R06.83 Sleep difficulties G47.9 Parasomnia, unspecified type G47.50 Parasomnia type: unspecified parasomnia
== END 2025-03-24 11:32 | disposition home or self-care (01) ==
LOC: HO.HSMS 11:01
PROVIDERS: PCP Internal Medicine; Visit Provider Nurse Practitioner Family
DX: G47.33 Obstructive sleep apnea (adult) (pediatric) (principal); G47.34 Idiopathic sleep related nonobstructive alveolar hypoventilation; G47.10 Hypersomnia, unspecified; R06.83 Snoring; G47.9 Sleep disorder, unspecified; G47.50 Parasomnia, unspecified
CPT/HCPCS: 99213

== ENCOUNTER → 2025-03-24 11:00 | Outpatient (BNVA) | payer OTHER, SELFPAY | PROVIDERS: PCP Internal Medicine; Visit Provider Nurse Practitioner Family | DX: Z71.2 Person consulting for explanation of examination or test findings (principal); G47.34 Idiopathic sleep related nonobstructive alveolar hypoventilation; G47.10 Hypersomnia, unspecified; R06.83 Snoring; G47.9 Sleep disorder, unspecified; G47.50 Parasomnia, unspecified; G47.33 Obstructive sleep apnea (adult) (pediatric); Z99.89 Dependence on other enabling machines and devices; E55.9 Vitamin D deficiency, unspecified | CPT/HCPCS: 99212 ==

== ENCOUNTER 2025-04-20 13:47 | Outpatient (AMB) | payer OTHER, SELFPAY ==
--- NOTE | 2025-04-20 13:52 | A.OFFPC_ITS ---
Vital Signs 04/20/25 13:53 Height 5 ft 6 in Weight 209 lb 8 oz BMI 33.8 BP 130/90 H Blood Pressure Location Lt brachial Position Sitting Pulse 101 H Pulse Source Pulse Oximeter Temp 97.5 F Temp Source Temporal Artery Scan Pulse Oximetry (%) 97 Oxygen Delivery Method Room Air Intake Visit Reasons: cardiology referal Intake Note: Patient is here for hospital discharge follow up. Patient was discharged from [facility] on 04/11/25. Requesting for cardiology referral. Classification Inspector Required: Yes Classification Inspector Language: Puppet Maker Name: Thor (brother) Information Interpreted: non-clinical & clinical (Pt decline supervisor calibration service prefer brother to translate for him.) District Captain: Present Accompanied by: Brother Allergies ibuprofen (From MOTRIN) Allergy (Intermediate, Verified 04/20/25 13:53) RASH/ITCH, swelling Tobacco use date assessed: 04/20/25 Dental Screening Dental Screen Date: 10/27/24 HPI cardiology referal HPI Details 49-year-old male presents to the office to discuss his chronic medical conditions. He is accompanied by his brother who is speaking for the patient. Patient can not speak or understand [place]. Recently at [facility] for fatigue and weakness. The discharge summary from the hospital shows that he had congestive heart failure and it was attributed to substance use. Patient states he has not been using any illegal substance for the past 6 months. He now wants to see a band presser. He continues to fall asleep in the room. This is a behavior that was noticed in the past. A neurology consult was obtained and he was found to have severe obstructive sleep apnea. A CPAP machine was arranged for the patient but unfortunately he has not been using it. COUNTS INCLUDE 234 BEDS AT THE [facility] Medical History (Updated 04/20/25 @ 14:37 by Prabhakar Elliott MD) Coronary artery disease JOHN (obstructive sleep apnea) Hepatitis C infection Screen for STD (sexually transmitted disease) Drowsy Positive NACHO (antinuclear antibody) History of lupus anticoagulant disorder Polyarthralgia History of heroin use Depression with anxiety Surgical History No pertinent past surgical history Family History Father Diabetes Hypertension Chronic mental illness Mother No problems noted. Family/Other Chronic mental illness Substance use disorder Social History Housing: Apartment Alcohol intake: never Patient Tobacco Use Status: Current everyday Tobacco user Tobacco use type: Cigarette Cigarette Packs Per Day: 2 Cigarettes Per Day: 40 e-Cigarette/Vaping Use: Never Used Second Hand Smoke Exposure: Yes service: No Current occupational status: unemployed Cognitive needs: No Hearing needs: No Vision needs: No Questionnaire Thrive Questionnaire Date Thrive assessed: 10/27/24 TUAN-7 AMB Questionnaire TUAN-7 Date TUAN - 7 assessed: 10/27/24 Source: Developed by Drs. Forrest Villareal, Renee Merino, Jeremias Meneses and colleagues, with an educational rachel from [employer]. Physical exam (Primary Care) Vital Signs: Last Vital Signs Temp 97.5 F 04/20/25 13:53 Pulse 101 H 04/20/25 13:53 BP 130/90 H 04/20/25 13:53 Pulse Ox 97 04/20/25 13:53 Oxygen Delivery Method Room Air 04/20/25 13:53 BMI result Body Mass Index 33.8 Tobacco/Smoking Status: Tobacco use Status Tobacco use date assessed 04/20/25 04/20/25 13:59 Patient Tobacco Use Status Current everyday Tobacco 04/20/25 13:52 Tobacco use type Cigarette 04/20/25 13:52 e-Cigarette/Vaping Use Never Used 04/20/25 13:52 Thrive Assessment: Date of Thrive Assessment Date Thrive assessed 10/27/24 04/20/25 13:52 Const General: cooperative Nutritional Appearance: well nourished Limitations: no limitations HENMT Head: Yes normal to inspection Eyes General: appearance normal, both eyes and all related structures Neck Neck: Yes normal visual inspection Chest Chest palpation & inspection: normal palpation of entire chest wall Resp Effort & Inspection: normal respiratory effort Coding Level of Care Code Est Pt Level 4 (08652) Complex EM visit Add On G2211 Diagnoses JOHN (obstructive sleep apnea) G47.33 Parasomnia, unspecified type G47.50 Parasomnia type: unspecified parasomnia Coronary artery disease I25.10 Assessment & Plan Assessment & Plan (1) JOHN (obstructive sleep apnea): Code(s): G47.33 - Obstructive sleep apnea (adult) (pediatric) Category: Medical Plan: Patient has not been using the CPAP machine at night. Through the supervisor calibration he informs me that the tubing has been ripped. I reviewed the neurology note and he was found to have markedly severe apnea which explains his daytime somnolence. Seroquel has been discontinued. (2) Parasomnia: Code(s): G47.50 - Parasomnia, unspecified Category: Medical Qualifiers: Parasomnia type: unspecified parasomnia Qualified Code(s): G47.50 - Parasomnia, unspecified Plan: This is as recorded in the neurology consult. (3) Coronary artery disease: Code(s): I25.10 - Atherosclerotic heart disease of [place] coronary artery without angina pectoris Category: Medical Plan: History of cardiac disease is not reliable. History was obtained from the discharge summary at [facility] where he is reported to be in heart failure due to substance use. Patient reports that he has been clear of any substance for the past 6 months. Cardiology referral has been made.
[2025-04-20 13:53] VITALS: BP 130/90; PULSE 101; TEMP 36.4; O2SAT 97; BMI 33.8
== END 2025-04-20 14:37 | disposition home or self-care (01) ==
PROVIDERS: PCP Internal Medicine; Visit Provider Internal Medicine
DX: G47.33 Obstructive sleep apnea (adult) (pediatric) (principal); G47.50 Parasomnia, unspecified; I25.10 Atherosclerotic heart disease of native coronary artery without angina pectoris

== ENCOUNTER → 2025-04-20 13:47 | Outpatient (BNVA) | payer OTHER, SELFPAY | PROVIDERS: PCP Internal Medicine; Visit Provider Internal Medicine | DX: G47.33 Obstructive sleep apnea (adult) (pediatric) (principal); G47.50 Parasomnia, unspecified; I25.10 Atherosclerotic heart disease of native coronary artery without angina pectoris; Z99.89 Dependence on other enabling machines and devices | CPT/HCPCS: 99212 ==

== ENCOUNTER 2025-05-18 16:43 | Outpatient (REF) | payer MEDICAID, SELFPAY ==
[2025-05-18 17:43] LABS: Cannabinoid Screen Urine Not Detected (Not Detect)
[2025-05-19 02:48] LABS: CT PCR Urine NOT DETECTED (Not Detect.); NG PCR Urine NOT DETECTED (Not Detect.)
[2025-05-19 08:15] LABS: HIV Num 1 0.05 S/CO (0.00-0.99)
[2025-05-19 08:16] LABS: Syphilis Screen Nonreactive (Nonreactive)
== END 2025-05-18 16:44 | disposition home or self-care (01) ==
LOC: HO.LAB 16:43
PROVIDERS: PCP Internal Medicine; Visit Provider Internal Medicine
DX: G47.10 Hypersomnia, unspecified (principal); Z20.2 Contact with and (suspected) exposure to infections with a predominantly sexual mode of transmission; Z11.4 Encounter for screening for human immunodeficiency virus [HIV]
CPT/HCPCS: 80307; 86780; 87389; 87491; 87591

== ENCOUNTER 2025-06-26 10:48 | Outpatient (AMB) | payer OTHER, SELFPAY ==
--- NOTE | 2025-06-26 11:02 | A.OFFVIS_ITS ---
Vital Signs 06/26/25 11:04 Height 5 ft 6 in Weight 205 lb 2 oz BMI 33.1 BP 130/92 H Blood Pressure Location Rt brachial Position Sitting Pulse 116 H Pulse Source Pulse Oximeter Pulse Oximetry (%) 95 Oxygen Delivery Method Room Air Intake Visit Reasons: 4mnth w Subhana Intake Note: Patient presents follow up JOHN. No compliance(last used 10/06/2024) Patient brought machine Manufacturing Management Associate Required: Yes Manufacturing Management Associate Services: Manufacturing Management Associate Offered & Declined Manufacturing Management Associate Name: self Accompanied by: Self / Same As Patient Allergies ibuprofen (From MOTRIN) Allergy (Intermediate, Verified 06/26/25 11:10) RASH/ITCH, swelling HPI Comments Details: 49-yr-old male presents for f/u of in-lab PSG. 06/23/24, in-las PSG w/ split night was notable for severe JOHN AHI 107/hr and O2 [place] 69%, split night portion of study showed reduction in residual AHI on CPAP 12 cmH2O, however residual O2 [place] was 85%. 05/05/2024, labs were notable for: Positive NACHO 1:1280, nuclear centromere a; cira sanabria has reestablished care with Rheumatology-did not feel that patient had any active symptoms c/w rheumatological process. Note pt was recently seen in urgent care- in hopes of re-establishing care, and to check on his hand and leg swelling. Lab work-up was notable for positive NACHO 1:1280 w/ nuclear, centromere pattern. Pt states he has a h/o lupus but has not seen rheumatology since 2021. Patient was started on CPAP 12 cm H2O, based on results of the split night portion of the PAP titration study. Patient states he sleeps better with CPAP use, and had more daytime energy. However, patient states he has not been able to use the machine in over a month, as the CPAP tubing is broken. Unfortunately, his current PAP compliance report does not show any significant usage of his CPAP machine. He continues to be somnolent he is is being managed with behavioral med and tss services for substance use disorder. [facility] Medical History Coronary artery disease JOHN (obstructive sleep apnea) Hepatitis C infection Screen for STD (sexually transmitted disease) Drowsy Positive NACHO (antinuclear antibody) History of lupus anticoagulant disorder Polyarthralgia History of heroin use Depression with anxiety Surgical History No pertinent past surgical history Family History Father Diabetes Hypertension Chronic mental illness Mother No problems noted. Family/Other Chronic mental illness Substance use disorder Social History Housing: Apartment Alcohol intake: never Patient Tobacco Use Status: Current everyday Tobacco user Tobacco use type: Cigarette Cigarette Packs Per Day: 2 Cigarettes Per Day: 40 e-Cigarette/Vaping Use: Never Used Second Hand Smoke Exposure: Yes service: No Current occupational status: unemployed Cognitive needs: No Hearing needs: No Vision needs: No Physical Exam Vital Signs: Last Vital Signs Pulse 116 H 06/26/25 11:04 BP 130/92 H 06/26/25 11:04 Pulse Ox 95 06/26/25 11:04 Oxygen Delivery Method Room Air 06/26/25 11:04 BMI result Body Mass Index 33.1 Const Other: Pt repeatedly dozing off throughout visit, sometimes even mid-conversation with slurred speech, he is difficult to understand. BP is elevated. General: no acute distress, lethargic and tired appearing Nutritional Appearance: overweight Orientation/consciousness: patient oriented x3 and lethargic HEENT Face and sinus: Yes other (asymmetrical smile) Throat: Yes other (mallampti score is 4) Eyes Pupils: Equal, round and reactive pupils present Neck Neck: Yes full ROM Resp Effort & Inspection: able to speak in complete sentences Cardio Rate: regular rate Rhythm: regular rhythm Skin Other: diaphoretic forehead, balmy cold arms Neuro General: patient oriented x3 and moves all extremities Cranial nerves: Yes Equal, round and reactive pupils present, Yes Midline tongue present, Yes Ability to bilaterally rotate head present and Yes Ability to bilaterally elevate shoulders present Gait exam (Neuro): Staggering gait present Motor exam (neuro): 5/5 motor strength present throughout, Pronator motor function not present, no tremor noted and Normal motor muscle tone present throughout Deep tendon reflexes (DTR's): Right triceps reflex intensity grade: 2+, Left triceps reflex intensity grade: 2+, Rt Biceps (C5, C6): 2+, Left biceps reflex intensity grade: 2+, Right brachioradialis reflex intensity grade: 2+, Left brachioradialis reflex intensity grade: 2+, Right patellar reflex intensity grade: 2+ and Left patellar reflex intensity grade: 2+ Coordination: [id number]-fu-[id number] test normal Psych Appearance: well kempt Speech and movement: Slurred speech present and Slowed movement present (Neuro) Attitude: cooperative Insight: Fair insight present (Psych) Judgement: Fair judgement present (Psych) Results Reviewed Results Reviewed: Right median and ulnar motor and sensory studies were performed. Right radial sensory study was performed and paraspinal muscles were tested with a needle. IMPRESSION: Mild right ulnar neuropathy across cubital tunnel. Assessment & Plan Assessment & Plan (1) Severe obstructive sleep apnea: Code(s): G47.33 - Obstructive sleep apnea (adult) (pediatric) Category: Medical (2) Nocturnal hypoxemia: Code(s): G47.34 - Idiopathic sleep related nonobstructive alveolar hypoventilation Category: Medical (3) Hypersomnia: Code(s): G47.10 - Hypersomnia, unspecified Category: Medical (4) Snoring: Code(s): R06.83 - Snoring Category: Medical (5) Sleep difficulties: Code(s): G47.9 - Sleep disorder, unspecified Category: Medical (6) Parasomnia: Code(s): G47.50 - Parasomnia, unspecified Category: Medical Qualifiers: Parasomnia type: unspecified parasomnia Qualified Code(s): G47.50 - Parasomnia, unspecified Plan JOHN Patient has since received CPAP 12 cm H2O, unfortunately he states he has been unable to use it due to a broken tubing. We will follow-up with respiratory company to request a machine/supply evaluation. 06/26/2025 new rx written to supply tubing or a replacment cpap unit as pt has h/o CHF, HTN. Nocturnal Hypoxemia Once patient has used CPAP consistently, times at least 2 weeks, check nocturnal pulse oximetry x1 night while on room air via CPAP 12 cm H2O. Patient is not a candidate for inspire therapy, due to severity of JOHN. If symptoms of excessive daytime sleepiness, parasomnias, hypnagogic hallucinations persist after patient has consistently used his CPAP x1 month, consider follow-up workup to assess for possible narcolepsy with cataplexy, such as in-lab PSG/MSLT or CSF orexin level. Labs reviewed with pt continue vitamin-D supplement, per PCP. Discontinue quetiapine- pt is not having difficulty falling asleep and needs to be stopped prior to a MSLT study. Pt advised to NOT drive. F/U in 3months Coding Level of Care Code Est Pt Level 4 (13539) Diagnoses Severe obstructive sleep apnea G47.33 Nocturnal hypoxemia G47.34 Hypersomnia G47.10 Snoring R06.83 Sleep difficulties G47.9 Parasomnia, unspecified type G47.50 Parasomnia type: unspecified parasomnia
[2025-06-26 11:04] VITALS: BP 130/92; PULSE 116; O2SAT 95; BMI 33.1
== END 2025-06-26 11:34 | disposition home or self-care (01) ==
LOC: HO.HSMS 10:49
PROVIDERS: PCP Internal Medicine; Visit Provider Physician Assistant Medical
DX: G47.33 Obstructive sleep apnea (adult) (pediatric) (principal); G47.34 Idiopathic sleep related nonobstructive alveolar hypoventilation; G47.10 Hypersomnia, unspecified; R06.83 Snoring; G47.9 Sleep disorder, unspecified; G47.50 Parasomnia, unspecified
CPT/HCPCS: 99214

== ENCOUNTER → 2025-06-26 10:48 | Outpatient (BNVA) | payer OTHER, SELFPAY | PROVIDERS: PCP Internal Medicine; Visit Provider Physician Assistant Medical | DX: G47.33 Obstructive sleep apnea (adult) (pediatric) (principal); G47.34 Idiopathic sleep related nonobstructive alveolar hypoventilation; G47.10 Hypersomnia, unspecified; R06.83 Snoring; G47.9 Sleep disorder, unspecified; G47.50 Parasomnia, unspecified | CPT/HCPCS: 99212 ==

== ENCOUNTER 2025-06-29 12:41 | Outpatient (AMB) | payer OTHER, SELFPAY ==
[2025-06-29 12:56] VITALS: BP 140/86; PULSE 109; TEMP 36.2; O2SAT 94; BMI 33.5
--- NOTE | 2025-06-29 12:56 | A.OFFPC_ITS ---
Vital Signs 06/29/25 12:56 Height 5 ft 6 in Weight 207 lb 6 oz BMI 33.5 BP 140/86 H Blood Pressure Location Lt brachial Position Sitting Pulse 109 H Pulse Source Pulse Oximeter Temp 97.1 F Temp Source Temporal Artery Scan Pulse Oximetry (%) 94 Oxygen Delivery Method Room Air Intake Visit Reasons: 3 month f/u - see comments Intake Note: Patient is here to follow up on CAD, JOHN. Pararescue Craftsman Required: Yes Pararescue Craftsman Language: Curriculum Advisory Teacher Name: Bunny [id number] Information Interpreted: non-clinical & clinical Manager House: Present Accompanied by: Spouse Allergies ibuprofen (From MOTRIN) Allergy (Intermediate, Verified 06/29/25 12:57) RASH/ITCH, swelling Tobacco use date assessed: 04/20/25 Dental Screening Dental Screen Date: 10/27/24 [facility] Medical History Coronary artery disease JOHN (obstructive sleep apnea) Hepatitis C infection Screen for STD (sexually transmitted disease) Drowsy Positive NACHO (antinuclear antibody) History of lupus anticoagulant disorder Polyarthralgia History of heroin use Depression with anxiety Surgical History No pertinent past surgical history Family History Father Diabetes Hypertension Chronic mental illness Mother No problems noted. Family/Other Chronic mental illness Substance use disorder Social History (Updated 06/29/25 @ 13:22 by RHEA Whitman) Housing: Apartment Alcohol intake: never Patient Tobacco Use Status: Current everyday Tobacco user Tobacco use type: Cigarette Cigarette Packs Per Day: 0.5 Cigarettes Per Day: 10 e-Cigarette/Vaping Use: Never Used Second Hand Smoke Exposure: Yes service: No Current occupational status: unemployed Cognitive needs: No Hearing needs: No Vision needs: No Questionnaire PHQ-9 Over the last 2 weeks, how often have you been bothered by any of the following problems? 1. Little interest or pleasure in doing things: nearly every day 2. Feeling down, depressed, or hopeless: nearly every day 3. Trouble falling or staying asleep, or sleeping too much: nearly every day 4. Feeling tired or having little energy: nearly every day 5. Poor appetite or overeating: several days 6. Feeling bad about yourself - or that you are a failure or have let yourself or your family down: nearly every day 7. Trouble concentrating on things, such as reading the newspaper or watching television: nearly every day 8. Moving or speaking so slowly that other people could have noticed. Or the opposite - being so fidgety or restless that you have been moving around a lot more than usual: nearly every day 9. Thoughts that you would be better off or of hurting yourself in some way: not at all Total score: 22 Depression Screening Interpretation: Positive Depression Screening Follow-up: Existing condition and In treatment Depression Screening Done: Yes Source: Developed by Drs. Forrest Villareal, Renee Merino, Jeremias Meneses and colleagues, with an educational rachel from [employer]. Thrive Questionnaire Date Thrive assessed: 10/27/24 I am a: Patient What is your living situation today?: I have a steady place to live Within the past 12 months, did the food you bought not last and you didn't have the money to get more?: I choose not to answer this question Within the past 12 months, did you worry whether your food would run out before you got money to buy more?: I choose not to answer this question Do you have trouble paying for medicines?: I choose not to answer this question Do you have trouble getting transportation to medical appointments?: No Do you have trouble paying your heating and electricity bill?: No Do you have trouble taking care of your child, family member or friend?: I choose not to answer this question Do you have trouble with day-to-day activities such as bathing, preparing meals, shopping, managing finances, etc.?: No Are you currently unemployed and looking for a job?: No Are you interested in more education?: I choose not to answer this question Please select the resources that you would like help with: None Currently or been in a relationship where the following occur: I choose not to answer THRIVE Score: 0 AUDIT C Alcohol Use Questionnaire (AUDIT-C) 1. How often do you have a drink containing alcohol?: Never Total Score: 0 TUAN-7 AMB Questionnaire TUAN-7 Date TUAN - 7 assessed: 10/27/24 Source: Developed by Drs. Forrest Villareal, ReneeJeremias Valdivia and colleagues, with an educational rachel from [employer]. Physical exam (Primary Care) Vital Signs: Last Vital Signs Temp 97.1 F 06/29/25 12:56 Pulse 109 H 06/29/25 12:56 BP 140/86 H 06/29/25 12:56 Pulse Ox 94 06/29/25 12:56 Oxygen Delivery Method Room Air 06/29/25 12:56 BMI result Body Mass Index 33.5 Tobacco/Smoking Status: Tobacco use Status Tobacco use date assessed 04/20/25 06/29/25 12:58 Patient Tobacco Use Status Current everyday Tobacco 06/29/25 13:22 Tobacco use type Cigarette 06/29/25 13:22 e-Cigarette/Vaping Use Never Used 06/29/25 13:22 PHQ-9: PHQ-9 Score PHQ-9: Total score 22 06/29/25 13:31 Depression Screening Interpretation: Positive Depression Screening Follow-up: Existing condition and In treatment Thrive Assessment: Date of Thrive Assessment Date Thrive assessed 10/27/24 06/29/25 12:58 Currently or been in a relationship where the following occur: I choose not to answer Office Procedures Flu Questionnaire Does the patient have a severe egg allergy?: No Does the patient have severe life threatening allergies?: No Does the patient have a fever or illness today?: No Has the patient ever had Guillain-Cressey Syndrome?: No Has the patient ever had any past reaction to a flu shot?: No Immunizations Fluarix [id number] (PF) 45 mcg (15 mcg x 3)/0.5 mL IM syringe Performing Provider: Prabhakar Elliott MD [facility] Administered by: Krys Bernstein CMA on 06/29/25 14:19 Dose Route Admin Location Dispensed Lot Number Expiration Date [facility] Advertising Sales Agent 0.5 mL IM Left Deltoid 0.5 mL [id number] 02/20/26 [id number] [employer] VIS Given Date VIS Provided VIS Publication Date 06/29/25 Single Vaccine 24 Eligibility Eligibility Date Funding Source Not [facility] Eligible 06/29/25 Private Coding Assessment & Plan Assessment & Plan Orders: Orders Complete Blood Count no Diff Today F41.8 - Other specified anxiety disorders Influenza [id number] Immunization Today Z23 - Encounter for immunization Basic Metabolic Panel Today F41.8 - Other specified anxiety disorders Lipid Panel Today F41.8 - Other specified anxiety disorders Liver Panel Today F41.8 - Other specified anxiety disorders Thyroid Stimulating Hormone Today F41.8 - Other specified anxiety disorders UA and rflx microscopic Today F41.8 - Other specified anxiety disorders Referrals Gastroenterology Referral Z12.11 - Encounter for screening for malignant neoplasm of colon Medications: New valsartan 80 mg PO DAILY 90 tabs 0RF Refilled furosemide 20 mg PO DAILY 90 tabs 0RF carvedilol 3.125 mg PO BID 180 tabs 0RF
== END 2025-06-29 15:13 | disposition home or self-care (01) ==
LOC: HO.HMCH 12:42
PROVIDERS: PCP Internal Medicine; Visit Provider Internal Medicine
DX: Z23 Encounter for immunization (principal)

== ENCOUNTER 2025-06-29 12:41 | Outpatient (REF) | payer OTHER, SELFPAY ==
[2025-06-29 14:41] LABS: Hematocrit 45.3 % (42.0-52.0); Hemoglobin 14.8 g/dl (14.0-18.0); Mean Corpuscular HGB Conc 32.7 g/dl (31.0-36.0); Mean Corpuscular Hemoglobin 30.8 pg (27.0-33.0); Mean Corpuscular Volume 94.4 fL (80.0-98.0); NRBC Abs Auto 0.000 X10*3/uL (0.0-0.012); NRBC Pct Auto 0.0 /100WBC (0.0-0.2); Platelet Count 298 X10*3/uL (160-400); Red Blood Count 4.80 X10*6/uL (4.60-5.80); White Blood Count 8.7 X10*3/uL (4.8-10.8)
[2025-06-29 15:11] LABS: Appearance Urine Cloudy; Glucose Urine UA 100 mg/dL (Negative); PH 7.0 (5.0-9.0); Specific Gravity - Urine 1.015 (1.005-1.025)
[2025-06-29 15:15] LABS: Alanine Aminotransferase 22 U/L (0-40); Albumin Level 4.6 g/dL (3.5-5.0); Alkaline Phosphatase 103 U/L (39-117); Anion Gap 11 (12-20); Aspartate Amino Transferase 20 U/L (5-37); Blood Urea Nitrogen 12 mg/dL (9-16); Calcium 9.7 mg/dL (8.4-10.2); Carbon Dioxide 30 mmol/L (22-29); Chloride 102 mmol/L (96-108); Cholesterol 202 mg/dL (<200); Estimated Glomerular Filt Rate > 60; HDL Cholesterol 44 mg/dL (>40); Potassium 3.9 mmol/L (3.3-5.1); Sodium 139 mmol/L (135-145); Total Protein 7.6 g/dL (6.5-8.0); Triglycerides 193 mg/dL (<150)
[2025-06-29 15:31] LABS: Thyroid Stimulating Hormone 0.43 uIU/mL (0.32-4.0)
[2025-06-29 16:24] LABS: CT PCR Urine NOT DETECTED (Not Detect.); NG PCR Urine NOT DETECTED (Not Detect.)
[2025-06-30 07:37] LABS: Syphilis Screen Nonreactive (Nonreactive)
[2025-06-30 08:04] LABS: HIV Num 1 0.07 S/CO (0.00-0.99)
== END 2025-06-29 12:42 | disposition home or self-care (01) ==
LOC: HO.HMGCLDS 12:41
PROVIDERS: PCP Internal Medicine; Visit Provider Internal Medicine
DX: Z11.3 Encounter for screening for infections with a predominantly sexual mode of transmission (principal); Z23 Encounter for immunization; F41.8 Other specified anxiety disorders; Z79.899 Other long term (current) drug therapy
CPT/HCPCS: 80048; 80061; 80076; 81003; 84443; 85027; 86780; 87389; 87491; 87591; 90471; 90656; 99212